=== PATIENT | female | born 1940 | race American Indian/Alaskan Native ===

== ENCOUNTER → 2017-11-12 08:30 | Outpatient (CLI) | payer MEDICARE, OTHER, SELFPAY ==
--- NOTE | 2017-11-12 | DI.MRI.S_ITS ---
PROCEDURE: MR LUMBAR SPINE WO CON INDICATIONS: Low back pain TECHNIQUE: Noncontrast sagittal T1 spin echo and T2 fast echo, sagittal STIR, axial T1 and T2 fast spin echo through the lumbar spine. In cases with scoliosis, additional coronal T2 fast spin echo may be performed. COMPARISON: None. FINDINGS: Image quality: Diagnostic, with note made of motion artifact. Alignment and Curvature: Minimal anterolisthesis is seen at L3-L4. There is grade 1 anterolisthesis at L4-L5. No pars defects are seen to the limits of MRI. Bone Marrow: Marrow is of normal overall signal. No acute vertebral body compression fractures. Spinal Cord: Conus medullaris terminates at the L1-L2 level. Visualized cord demonstrates normal signal and size. Paraspinous Soft Tissues: No paravertebral masses. T12-L1: Normal appearance. L1-L2: Normal appearance. L2-L3: The disc height is well-preserved. Loss of disc signal is seen at this level. Mild disc bulge is seen, which is eccentric to the right side. Mild facet joint hypertrophy is seen. There is mild to moderate right-sided neural foraminal narrowing. No significant left-sided neural foraminal narrowing is seen. Mild central canal narrowing is seen. L3-L4: The disc height is well-preserved. Loss of disc signal is seen at this level. Moderate to prominent disc bulge is seen, which is eccentric to the right. Moderate facet hypertrophy is seen, with associated moderate hypertrophy of the ligamentum flavum. There is moderate right-sided neural foraminal narrowing and moderate to severe left-sided neural foraminal narrowing, with associated impingement upon the exiting left L3 nerve root. Moderate to severe central canal narrowing is seen, as on series 6 image 20 and L4-L5: Mild loss of disc height is seen. Loss of disc signal is seen. Prominent disc bulge is seen at this level, with a central disc protrusion. Moderate facet hypertrophy is seen, associated moderate hypertrophy of the ligament flavum. There is moderate left-sided and moderate to severe right-sided neural foraminal narrowing seen, with associated impingement upon the exiting right L4 nerve root. Moderate to severe central canal narrowing is seen at this level, as on series 6 image 14. L5-S1: Moderate loss of disc height is seen. Loss of disc signal is seen. Moderate disc bulge is seen at this level, with a central disc protrusion, as on series 2 image 13. There is an associated annular fissure, as on series 2 images 12 through 14.. Mild to moderate facet hypertrophy is seen. Moderate to severe bilateral neural foraminal narrowing is seen, left worse than right. There is a degree of impingement seen upon the exiting nerve roots. Moderate central canal narrowing is seen. IMPRESSION: Prominent lower lumbar spine degenerative changes are seen. Dictated by: Manuelito Hooper M.D. on 11/12/2017 at 10:02 Approved by: Manuelito Hooper M.D. on 11/12/2017 at 10:14
== END ==
PROVIDERS: Visit Provider Orthopaedic Surgery Orthopaedic Surgery of the Spine
DX: M54.5 Low back pain (principal); M51.36 Other intervertebral disc degeneration, lumbar region; M51.37 Other intervertebral disc degeneration, lumbosacral region
CPT/HCPCS: 72148

== ENCOUNTER 2017-12-01 10:23 | Day surgery (SDC) | payer MEDICARE, OTHER, SELFPAY ==
[2017-11-13 11:47] VITALS: BMI 26.5
[2017-12-01] VITALS (16 sets, daily range): BP systolic 107–149; BP diastolic 37–70; PULSE 53–71; RESP 15–17; TEMP 35.8–36.8; O2SAT 94–98; BMI 23.9
[2017-12-01] MEDS: ACETAMINOPHEN 325 MG TABLET 975 MG PO (10:55)
[2017-12-01] MEDS: LACTATED RINGERS 1,000 ML 42 ML IV (10:56)
[2017-12-01] MEDS: CELECOXIB 200 MG CAPSULE PO (10:56)
--- NOTE | 2017-12-01 12:20 | PM.PREOP ---
Pre-operative Note Interval Note Pre-op Check: History & Physical Reviewed by Physician and Changes
[2017-12-01] MEDS: CEFAZOLIN 2 GM/100 ML FROZ.PIGGY IV ×2 (12:50→21:23)
--- NOTE | 2017-12-01 13:26 | SUR.OPER ---
Supine on padded OR bed. Pillow under head, arms secured on padded armboards <90 degree abduction. Safety belt across torso. Non-operative leg secured with tape over blanket over lower leg. Operative leg secured in DeMayo/Aquiles positioner.
[2017-12-01] MEDS: BUPIVACAINE 0.25% W/ EPI 50 ML VIAL INJ (13:33)
[2017-12-01] MEDS: BUPIVACAINE LIPOSOME 266 MG/20 ML VIAL INJ (13:33)
[2017-12-01] MEDS: MORPHINE 4 MG/ML INJ INJ (13:34)
--- NOTE | 2017-12-01 14:24 | DI.RAD.S_ITS ---
PROCEDURE: XR KNEE RT 1TO2V INDICATIONS: post operative total knee TECHNIQUE: 2 view(s) of the knee acquired. COMPARISON: [facility] PAUL Koroma, XR KNEE ARTHRITIC SERIES RT, 11/19/2017, 9:32. FINDINGS: Bones: Patient is status post knee joint arthroplasty. Hardware components are in expected positions. Visualized bony structures are intact. Soft tissues: Overlying postoperative changes are noted. There is a soft tissue air and edema are present. No radiopaque foreign bodies. IMPRESSION: Expected post surgical changes related to right knee arthroplasty. Dictated by: Cecil Plunkett M.D. on 12/01/2017 at 14:13 Approved by: Cecil Plunkett M.D. on 12/01/2017 at 14:14
--- NOTE | 2017-12-01 14:24 | PM.OP.1 ---
Operative Date/Time/Diagnoses - Date of procedure: 12/01/17 Time of procedure: 14:25 Pre-op diagnosis: Right knee osteoarthritis Post-op diagnosis: same Procedure & Clinicians Procedure: Right total knee replacement Same procedure as scheduled: Yes Indications: The patient has had progressively worsening right knee pain with radiographic changes consistent with arthritis. Non-operative management has failed and the patient has requested total knee replacement. The risks, benefits and alternatives to surgery were discussed with the patient prior to proceeding. Risks discussed included, but were not limited to, failure to relieve pain, stiffness, infection, nerve damage, deep venous thrombosis, pulmonary embolism, stroke, coma, heart attack, permanent paralysis and , as well as the potential need for eventual revision of the prosthetic. Surgeon: Murphy Meier Technical Designer: John Eagle Click Yes if Unassisted: No Anesthesia Type: General, Spinal and Local Operative Notes Findings: Severe medial and moderate patellofemoral and lateral osteoarthritis Closure Type: primary Specimen(s): none sent Implants & Drains: Implants used in this procedure were manufactured by the [employer] and [employer] and included the BCS II Journey total knee replacement with a size 5 right cobalt chromium femur, size 4 right non porous tibial base plate, a 10 mm cross-linked polyethylene BCS II tibial insert and a 29 mm oval Cynthia II patella. Applied: implant(s) Estimated Blood Loss (mL): 25 Blood products transfused: none Tourniquet time (min): 51 Procedure in detail: The patient was seen in the pre-operative area, where the patient identified the right knee as the operative site and this was marked with my initials. The patient received pre-operative antibiotics, and was taken to the operating room and placed on the operative table in the supine position. After satisfactory anesthesia, a mattress renovator out was performed. The right leg was encircled with a tourniquet about the proximal thigh, and the leg was prepared from the toes to the tourniquet with ChloroPrep in the usual fashion and draped through sterile drapes. The leg was elevated and exsanguinated with Eschmark bandage and the tourniquet inflated to 250 mmHg pressure. The knee was approached through an approximately 18 cm incision centered over the patella and carried into the knee through a medial parapatellar arthrotomy. The anterior osteophytes and soft tissues were removed. The rotational landmarks of Wagner's line and the transepicondylar axis were marked on the femur with electrocautery, and intramedullary guide holes for the femur and tibia were created. The distal femoral cut was made in 6 degrees of valgus using the intramedullary guide at the primary cut setting. The proximal tibial cut was then made using the intramedullary guide, taking 9 mm of bone off the less involved side. The extension gap was checked and the rotation of the femoral component confirmed with the gap balancing system. The anterior, posterior and chamfer cuts were then made. The posterior osteophytes and soft tissues were then removed. The posterior capsule was injected with part of a mixture of 50 ml 0.25% Marcaine mixed with 20 ml Exparel and 4 mg of morphine for post-operative pain control. The remainder of this mixture was injected into the capsule and subcutaneous tissues during cement curing. The tibia was prepared with the rotation set by an extra medullary guide. Trial tibial and femoral components were then placed and the intercondylar notch cut through the femoral trial. Range of motion was 0-135 degrees, with good stability throughout the range. The patella was then cut to accommodate the patellar prosthetic. There was no need for a lateral release. The trials were then removed, and the femoral hole plugged with a bone plug. The bone was prepared with pulsatile lavage, and dried with a sponge. Cement was applied and the final prosthetics placed. Excess cement was removed during and after cement curing. After confirming there was no extruded cement posteriorly, the final tibial insert was placed. The knee was copiously irrigated and the tourniquet deflated. Hemostasis was obtained. The capsule was closed with interrupted # 2 polyester suture. The subcutaneous layer was closed with 3-0 Vicryl, and the skin with a running 3-0 V-Lock suture and SteriStrips. An Aquacel Ag dressing was applied and the patient was taken to recovery having tolerated the procedure well. Complications: none Condition: stable Disposition: PACU Plan for aftercare: The patient will be maintained on a standard total knee replacement protocol with weight bearing as tolerated. The patient will receive aspirin and sequential compression devices for DVT prophylaxis. The patient will be discharged home when safe for the home environment.
--- NOTE | 2017-12-01 16:09 | PC.NURSE ---
patient up to floor at 1545, iv catheter intact and patent, patient denies nausea, sob, and dizziness. patient states her ble feel slightly numb but she can feel when I touch her toes, demonstrates ability to wiggle toes. scd's are on and active. patient denies pain. 98% on ra at this time. dressing and juan wrap and c/d/i. patient oriented to room and call light, call light in reach, ba on. heart, lung, and bowel tones are wnl. patient is a&ox4. daughters are at bedside. patient tolerating ice chips, diet is regular. will provide water. will continue to monitor.
[2017-12-01] MEDS: ACETAMINOPHEN 325 MG TABLET 650 MG PO ×2 (16:50→23:39)
[2017-12-01] MEDS: LACTATED RINGERS 1,000 ML 100 ML IV (16:50)
[2017-12-01] MEDS: IBUPROFEN 200 MG TABLET PO (16:52)
[2017-12-01] MEDS: OXYCODONE IR 5 MG TABLET PO ×2 (18:21→21:23)
[2017-12-01] MEDS: DOCUSATE 100 MG CAPSULE PO (21:23)
[2017-12-01] MEDS: ASPIRIN EC 81 MG TABLET PO (21:23)
[2017-12-01] MEDS: sulfaSALAzine 500 MG TABLET 1000 MG PO (21:24)
[2017-12-02] MEDS: OXYCODONE IR 5 MG TABLET PO ×2 (02:11→09:14)
[2017-12-02 03:29] VITALS: BP 127/60; PULSE 53; RESP 16; TEMP 35.6; O2SAT 96
[2017-12-02] MEDS: CEFAZOLIN 2 GM/100 ML FROZ.PIGGY IV (04:48)
[2017-12-02] MEDS: ACETAMINOPHEN 325 MG TABLET 650 MG PO ×2 (04:54→12:39)
[2017-12-02] MEDS: ONDANSETRON 4 MG/2 ML INJ IV (05:44)
[2017-12-02 05:56] LABS: Hematocrit 33.1 % (36-46)
--- NOTE | 2017-12-02 07:37 | PM.PNPO.1 ---
Subjective Date Patient Seen: 12/02/17 Time Patient Seen: 07:38 Interval history: The patient reports that she is having some pain at the operative site but that generally her pain has been well controlled. Exam Vital Signs (past 8 hours): - 12/02/17 03:29 Temperature 96.1 F L Pulse Rate 53 L Respiratory Rate 16 Blood Pressure 127/60 H Pulse Oximetry 96 Oxygen Delivery Method Room Air Narrative Exam Narrative: Right lower extremity wound dressing is intact with no drainage on the bandage. Calf is soft. Light touch and motion are intact in the right lower extremity. Objective Labs Result Diagrams: 12/02/17 05:30 Labs: Laboratory Results - last 24 hr 12/02/17 05:30 Hgb 11.0 L Hct 33.1 L Assessment & Plan Post-op Postoperative Procedures Operation Date: 12/01/17 12:15 Actual Procedures Side Surgeon p Total Knee Arthroplasty Right Murphy Meier MD Postoperative day: 1 Postoperative status: doing well (The patient is doing well postop day 1 after right total knee replacement. She did not receive physical therapy yesterday although it was ordered. We will initiate physical therapy today and if she manages to do a short flight of stairs she may go home.) and anemia (The patient has a mild post hemorrhagic anemia which is anticipated. No further labs are necessary.) Postoperative plan: routine post-op care, ambulate and discharge (Discharge if meets criteria to be safe at home.) Time Spent With Patient less than 15 minutes
[2017-12-02 08:15] VITALS: BP 112/65; PULSE 48; RESP 12; TEMP 36.4; O2SAT 94
--- NOTE | 2017-12-02 09:09 | CM.DANOTE ---
DCP/Assessment: Reviewed chart. Patient is a 77yr old female admitted under SDC status for right TKA performed on 12-01-17. Primary payor is 1)[employer] 2)[employer]. PCP is Dr. Reid in [place] Met with patient explained CM/SW role. Patient alert and oriented, resting in bed at time of visit. Patient reports that she plans to go home when medically stable. Patient resides with daughter/Natalie. Patient does not anticipate any d/c planning needs. Patient has cane/walker for home use. Patient expected to see therapy this AM. Patient does report that she has 3-4 stairs to enter residence and once in residence. Patient reports that pending on how she does will therapy will determine on whether or not she will discharge today. Patient has outpatient therapy arranged in [place] Patient reports that her family will be providing her with transport to/from outpatient appointments. P: Anticipate home when medically stable. CM team name/number left on white board if patient/family have any questions. CM team to continue to follow. SONIA Nam Discharge Planning/Care Management CM Discharge Assessment Start: 12/02/17 09:07 Freq: Status: Active Protocol: Document 12/02/17 09:07 KJS (Rec: 12/02/17 09:09 Katelin [id number]) Discharge Planning Assessment Assigned Groutman SONIA/Sujey History Provided By Patient Has Patient been admitted in last 30 No days? Prior Living Arrangements House Household Members children Type of transporation used prior to Relies on Others admit Independent with ADL's Yes Is patient alert and oriented? Yes Caregiver for Another No Physical Barriers in Home Environment Stairs Discharge Plan Home Review Status In Process Next Review Type Discharge Review
[2017-12-02] MEDS: LISINOPRIL 20 MG TABLET PO (09:12)
[2017-12-02] MEDS: ASPIRIN EC 81 MG TABLET PO (09:12)
[2017-12-02] MEDS: DOCUSATE 100 MG CAPSULE PO (09:12)
[2017-12-02] MEDS: LEFLUNOMIDE 20 MG TABLET PO (09:14)
[2017-12-02] MEDS: sulfaSALAzine 500 MG TABLET 1000 MG PO (09:14)
--- NOTE | 2017-12-02 11:25 | PC.NURSE ---
Addendum entered by Emily Eugene R.N. 12/02/17 14:19: Zhen Eagle into see patient and check on r.knee bleeding. He assessed area and put some albert in with steri strips. pt up to bathroom and voided x1. She is back in chair and comfortable. Original Note: Assess- Pt up with P.T. and r.leg incision with some bleeding through aquacel dressing and juan wrap after pt up ambulating. Aquacel dressing changed and abd pad applied to area to help with extra absorbtion if area bleeds again. Pt tolerating ambulating in room and is now sitting up in chair. CMS wnl and ppx2.
--- NOTE | 2017-12-02 12:44 | PT.IIE ---
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 stated that she has been using a quad cane or SPC a few weeks prior to surgery but no AD before that. Social History Household Members children Living Arrangements House Number of Floors (Floors) Two Floors Number of Stairs To Enter/Railing? has 4 steps with L rail and R side wall. pt stays on main level of the house Home Environment Standard Height Toilet Tub/Shower Home Equipment Front Wheel Walker Quad Cane Straight Cane Grab Bars In Shower Additional Social History Comment stated that daughter works but took 1 week off to assist her and after that , her grand daughter can assist her. pt works as a title i director. M2 PT-IP Current Condition Start: 12/02/17 12:08 Freq: NEEDED Status: Active Protocol: Document 12/02/17 12:08 AB (Rec: 12/02/17 12:44 AB [id number]) Physical Therapy Current Condition Current Condition Evaluation Date 12/02/17 Treatment Diagnosis s/p R TKA Onset Date 12/01/17 Weight Bearing Status Weight Bearing Status Weight Bear as Tolerated M3 PT-IP Subjective Start: 12/02/17 12:08 Freq: NEEDED Status: Active Protocol: Document 12/02/17 12:08 AB (Rec: 12/02/17 12:44 AB [id number]) Subjective Physical Therapy Visit Type Type Initial Evaluation Visit Start Time 09:10 Visit Stop Time 10:10 Total Visit Minutes 60 Number of CUSTOMER CARE MANAGER Visits 0 Physical Therapy Visit Comments Patient Comments pt agreealbe to do therapy Therapy Pain Assessment Pain When Pain Assessed At Rest Pain Present Pain Present Pain Reported Location Right Knee Intensity 2 Scale Used Numeric (1 - 10) M4 PT-IP Mobility and Gait Start: 12/02/17 12:08 Freq: NEEDED Status: Active Protocol: Document 12/02/17 12:08 AB (Rec: 12/02/17 12:44 AB [id number]) PT-Bed Mobility Assessment Rolling Level of Assist Standby Assistance Supine to Sit Supine to Sit Standby Assistance PT-Transfer Assessment Sit to and From Stand Sit to and from Stand Minimal Assistance 1 Person Assistance Equipment Transfer Assistive Device Gait Belt Front Wheeled Walker Transfers Transfer Destination Chair Transfer Technique Stand Step Pivot Transfer Ability Level of Assist Minimal Assistance 1 Person Assistance Gait Assessment Gait Gait Assistance Required: Minimum Assistance Distance (Feet) (feet) 50 Able to Maintain Weight Bearing Status Yes During Gait Assistive Devices Assistive Device Gait Belt Front Wheeled Walker Orthotic/Prosthetic Devices or Brace: No Gait Deviations General Gait Pattern Antalgic Decreased Stride Length Decreased Feet Clearance Factors Limiting Gait Function Factors Limiting Gait Function Decreased Activity Tolerance Decreased Strength Limited Range of Motion Pain Poor Balance Poor Safety Awareness Comments Gait Comments pt ambulated to the toilet using FWW min A and cues for R quad activation. pt was able to maintain standing using FWW for support CGA while assisted with brief management . pt ambulated to the sink min A using FWW and was able to maintain standing by the sink CGA while completing handwashing. Pt ambulated in hallway towards stairs but has increase incision site bleeding and nurse informed. pt assisted back to room. completed transfer to chair min A using FWW. Nurse changed dressing. positioned pt on chair. call light and table set up. PT-Balance Assessment Sitting Balance and Reactions Static Sitting Balance Ability Good Dynamic Sitting Balance Ability Good Standing Balance and Reactions Static Standing Balance Ability Fair Dynamic Standing Balance Ability Fair M5 PT-IP Objective Assessments Start: 12/02/17 12:08 Freq: NEEDED Status: Active Protocol: Document 12/02/17 12:08 AB (Rec: 12/02/17 12:44 AB [id number]) Orientation Orientation/Cognition Level of Alertness Alert Orientation Name Age Year Place Situation Safety Awareness Decreased Safety Awareness Gross Range of Motion Lower Extremity ROM Assessment Right Impaired Strength Lower Extremity Strength Assessment Right Impaired M6 PT-IP Treatment Start: 12/02/17 12:08 Freq: NEEDED Status: Active Protocol: Document 12/02/17 12:08 AB (Rec: 12/02/17 12:44 AB [id number]) Physical Therapy Treatment Education Education Provided Precautions Weight Bearing Status Post-Op Packet Safety M7 PT-IP Assessment and Plan Start: 12/02/17 12:08 Freq: NEEDED Status: Active Protocol: Document 12/02/17 12:08 AB (Rec: 12/02/17 12:44 AB [id number]) PT Summary Assessment and Plan Potential Rehabilitation Potential Good Status of Condition at Evaluation Evolving Summary Impairments Pain ROM Strength Balance Bed Mobility Transfers Gait Activity Tolerance Assessment Summary pt requiring one person assist with mobility and will likely improve during hospital stay. stair climbing needs to be completed prior to d/c and caregiver training if appropriate. Goals Bed Mobility Goal Standby Assistance Transfer Goal Standby Assistance Gait Goal Standby Assistance Front Wheel Walker Gait Distance 150 Other Goals up/down 4 steps with L rail ascending. Days to Meet Goals 3 Treatment Plan Physical Therapy Treatment Plan Bed Mobility Training Transfer Training Gait Training Therapeutic Exercise Balance Retraining Post Op Education Discharge Planning Hot or Cold Pack Neuromuscular Re-ed Other Recommendations and Next Treatment stair climbing, ambulation Focus Recommendations To Nursing Amount of Assist Needed 1 Person Assist Discharge Recommendations PT Discharge Recommendations Home with Assistance Outpatient PT
--- NOTE | 2017-12-02 15:24 | PM.DS.1 ---
History of Present Illness Date Patient Seen: 12/02/17 Time Patient Seen: 15:24 Chief complaint: *[place]B* [place] [id number] Narrative: Patient states her pain is mild. No fever chills. No nausea vomiting. She was able to walk steps with physical therapy. Her daughters could be home to assist her. Patient does feel ready to be discharged home today. Discharge Providers Consults: 12/01/17 15:57 Consult to Discharge Planning Routine Comment: Consult to Physical Therapy Evaluate & Treat Comment: Physician Instructions: postop TKA protocol Discharge provider: John Ealge PA-C Summary Discharge Diagnosis: Status post right total knee arthroplasty Hospital Course: patient has had progressively worsening right knee pain with radiographic changes consistent with arthritis. Non-operative management has failed and the patient has requested total knee replacement. The risks, benefits and alternatives to surgery were discussed with the patient prior to proceeding. Risks discussed included, but were not limited to, failure to relieve pain, stiffness, infection, nerve damage, deep venous thrombosis, pulmonary embolism, stroke, coma, heart attack, permanent paralysis and , as well as the potential need for eventual revision of the prosthetic. Surgeon: Murphy Meier Bench Worker Hollow Handle: John Eagle Click Yes if Unassisted: No Anesthesia Type: General, Spinal and Local Patient underwent right total knee arthroplasty. Patient progressing as expected. She did have more than expected drainage in the dressing. I did remove the dressing and found 2 areas 1 proximal and 1 more distal along the incision draining minimal amount of dark blood. I inspected the wound and removed the Steri-Strips patient had no complaints of pain. I talked with Dr. Still about applying some albert along the areas that are draining. Patient consented to the same. I placed 9 albert along the proximal and inferior wound and drainage stopped. New Aquacel dressing applied. Dressing and albert applied in sterile fashion. [place] wrap was applied. Patient was able to work with physical therapy without any further problems or drainage. Status at Discharge Functional status at discharge: uses cane/walker Overall status at discharge: patient is progressing back to baseline Time Spent with Patient Less than 30 minutes Exam Vital Signs (past 8 hours): - 12/02/17 08:15 Temperature 97.6 F Pulse Rate 48 L Respiratory Rate 12 Blood Pressure 112/65 Pulse Oximetry 94 Oxygen Delivery Method Room Air Narrative Exam Narrative: Pleasant 77-year-old female resting comfortably in bed in no apparent distress. The dressing is now clean, dry and intact. No further drainage noted. Motor function is intact distal right lower extremity. Sensation is grossly intact to light touch. Good capillary refill distally. Objective Labs Result Diagrams: 12/02/17 05:30 Labs: Laboratory Results - last 24 hr 12/02/17 05:30 Hgb 11.0 L Hct 33.1 L Discharge Plan Discharge Plan Patient Disposition: Home, Self-Care Discharge comment: DC home today Discharge Med Rec/Prescriptions Prescriptions: Continue sulfasalazine 500 mg Tablet 1,000 mg PO BID RF: 0 lisinopril 20 mg Tablet 20 mg PO QAM RF: 0 leflunomide 20 mg Tablet 20 mg PO QAM RF: 0 Discontinued ibuprofen 200 mg Tablet 200 mg PO DAILY PRN (Reason: pain) RF: 0 Follow up/Referrals: Murphy Meier MD [Physician] - (Follow up 5-7 days) Discharge Orders: Discharge (Order); Ordered 12/02/17 Ordered By: John Eagle Provider Discharge Instructions Diet: Diet as Tolerated Cold/Heat Therapy: Apply ice to the knee as needed. Other treatments: Keep dressing in place until follow-up appointment. If any further drainage she needs to be seen for recheck. Patient has prescription of oxycodone home to use as directed. She also has Tylenol and Mobic to use as directed. She will be on aspirin 81 mg b.i.d.. Wound Care Report to your healthcare provider any signs of infection, such as:: chills, fever, increased pain and unusual drainage Dressing: May shower with dressing in place. No soaking dressing for any length of time Other wound treatment: If continued drainage noted she is to return for follow up for recheck. Visit Report/Discharge Packet Stand Alone Forms: Surgery Discharge Discharge Data Attending Provider: Murphy Meier
[2017-12-02 16:01] VITALS: BP 120/62; PULSE 60; RESP 16; TEMP 36.7; O2SAT 96
[2017-12-02] MEDS: IBUPROFEN 200 MG TABLET PO (16:15)
--- NOTE | 2017-12-02 16:47 | PC.NURSE ---
1640: Discharge note Patient awake and alert, VSS and afebrile. CMS to LLE intact. Dressed self at bedside. Discharge instructions given to patient, including F/U appointment with Dr. Meier, wound/dressing care, s/sx of infection. Verbalized understanding of discharge instructions, answered questions. Daughters at bedside providing supportive care. PT will demonstrate stair mobility while daughters are present and available prior to discharge home.
--- NOTE | 2017-12-02 17:36 | PT.IPTN ---
Current Diagnoses Bilateral primary osteoarthritis of knee (12/01/17) Surgery Performed Operation Date: 12/01/17 12:15 Actual Procedures p Total Knee Arthroplasty(Right) - Murphy Meier MD Physical Therapy Treatment Note M2 PT-IP Current Condition Start: 12/02/17 12:08 Freq: NEEDED Status: Discharge Protocol: Document 12/02/17 12:08 AB (Rec: 12/02/17 12:44 AB [id number]) Physical Therapy Current Condition Current Condition Evaluation Date 12/02/17 Treatment Diagnosis s/p R TKA Onset Date 12/01/17 Weight Bearing Status Weight Bearing Status Weight Bear as Tolerated M3 PT-IP Subjective Start: 12/02/17 12:08 Freq: NEEDED Status: Discharge Protocol: Document 12/02/17 17:32 AB (Rec: 12/02/17 17:36 AB [id number]) Subjective Physical Therapy Visit Type Type Treatment Note Visit Start Time 14:50 Visit Stop Time 16:40 Total Visit Minutes 33 Number of SASH REPAIRER Visits 0 Physical Therapy Visit Comments Patient Comments pt agreeable to do therapy Therapy Pain Assessment Pain When Pain Assessed At Rest Pain Present Pain Present Pain Reported Location Right Knee Intensity 2 Scale Used Numeric (1 - 10) Pain Management Techniques Timing of Activity with Medications M4 PT-IP Mobility and Gait Start: 12/02/17 12:08 Freq: NEEDED Status: Discharge Protocol: Document 12/02/17 17:32 AB (Rec: 12/02/17 17:36 AB [id number]) PT-Bed Mobility Assessment Supine to Sit Supine to Sit Standby Assistance Sit to Supine Sit to Supine Standby Assistance PT-Transfer Assessment Sit to and From Stand Sit to and from Stand Contact Guard Assistance Equipment Transfer Assistive Device Gait Belt Front Wheeled Walker Gait Assessment Gait Gait Assistance Required: Contact Guard Assist Distance (Feet) (feet) 50 Able to Maintain Weight Bearing Status Yes During Gait Assistive Devices Assistive Device Gait Belt Front Wheeled Walker Gait Deviations General Gait Pattern Antalgic Factors Limiting Gait Function Factors Limiting Gait Function Decreased Activity Tolerance Decreased Strength Difficulty Following Directions Limited Range of Motion Pain Poor Balance Poor Safety Awareness Stair Climbing Assessment Evaluation Level of Assist On Stairs Minimal Assistance Devices Stair Climbing Assistive Devices Front Wheel Walker Technique/Endurance Stair Climbing Direction Ascend and Descend Stair Climbing Technique Step to Step Number of Steps Climbed 3 Query Text: Stair Climbing Set # Repetitions (reps) 4 Comments Stair Climbing Comments caregiver training conducted for stair climbing and daughter was able to assist pt safely M5 PT-IP Objective Assessments Start: 12/02/17 12:08 Freq: NEEDED Status: Discharge Protocol: Document 12/02/17 12:08 AB (Rec: 12/02/17 12:44 AB [id number]) Orientation Orientation/Cognition Level of Alertness Alert Orientation Name Age Year Place Situation Safety Awareness Decreased Safety Awareness Gross Range of Motion Lower Extremity ROM Assessment Right Impaired Strength Lower Extremity Strength Assessment Right Impaired M6 PT-IP Treatment Start: 12/02/17 12:08 Freq: NEEDED Status: Discharge Protocol: Document 12/02/17 17:32 AB (Rec: 12/02/17 17:36 AB [id number]) Physical Therapy Treatment Education Education Provided Precautions Weight Bearing Status Post-Op Packet Safety M7 PT-IP Assessment and Plan Start: 12/02/17 12:08 Freq: NEEDED Status: Discharge Protocol: Document 12/02/17 17:32 AB (Rec: 12/02/17 17:36 AB [id number]) PT Summary Assessment and Plan Potential Rehabilitation Potential Good Summary Impairments Pain ROM Strength Balance Cognition Bed Mobility Transfers Gait Activity Tolerance Progress Towards Goals Progressing Toward Goals Assessment Summary pt plans to go home today. caregiver training conducted with daughter for stair training and was able to assist pt. Goals Bed Mobility Goal Standby Assistance Transfer Goal Standby Assistance Gait Goal Standby Assistance Front Wheel Walker Gait Distance 150 Other Goals up/down 4 steps with L rail ascending. Treatment Plan Physical Therapy Treatment Plan Bed Mobility Training Transfer Training Gait Training Therapeutic Exercise Balance Retraining Post Op Education Discharge Planning Hot or Cold Pack Neuromuscular Re-ed Other Recommendations and Next Treatment stair climbing, ambulation Focus Recommendations To Nursing Amount of Assist Needed 1 Person Assist Discharge Recommendations PT Discharge Recommendations Home with Assistance Outpatient PT
== END 2017-12-02 16:43 | disposition home or self-care (01) ==
LOC: OR 10:25 → AC 15:54
PROVIDERS: Visit Provider Orthopaedic Surgery
PROC: 0SRC0JZ Replacement of Right Knee Joint with Synthetic Substitute, Open Approach (ICD-10-PCS; CPT 27447; principal; 2017-12-01 12:15)
DX: I10 Essential (primary) hypertension (principal); M06.9 Rheumatoid arthritis, unspecified
CPT/HCPCS: 27447; 36415; 73560; 85014; 85018; 97116; 97162; 97530; C1776; C9290; J0690; J1100; J2250; J2270; J2405; J2704; J3010

== ENCOUNTER 2018-02-18 05:39 | Inpatient (IN) | payer MEDICARE, OTHER, SELFPAY ==
[2017-12-01 15:57] VITALS: BMI 23.9
[2018-02-02 11:58] VITALS: BMI 24.4
[2018-02-18] VITALS (17 sets, daily range): BP systolic 90–163; BP diastolic 43–72; PULSE 72–84; RESP 10–20; TEMP 35.3–37.1; O2SAT 93–98; BMI 23.8
--- NOTE | 2018-02-18 | DI.RAD.S_ITS ---
PROCEDURE: XR LUMBAR SPINE 2-3V INDICATIONS: L3-4, L4-5 L5-S1 TLIF TECHNIQUE: 2 intraoperative fluoroscopic views of the lumbar spine were acquired. COMPARISON: None. FINDINGS: Bones: Intraoperative fluoroscopic images of lumbar spine shows transpedicular fusion from L3-S1 levels with intervertebral spacer placement at L3-4 through L5-S1 levels. Minimal anterolisthesis of L4 on L5 and L5 on S1 is seen. Soft tissues: Overlying bowel gas pattern is normal. No suspicious soft tissue calcifications. IMPRESSION: Fluoroscopy guidance was provided intraoperatively for posterior fusion of L3-S1 levels. Dictated by: Nikolai Melendez M.D. on 02/18/2018 at 13:10 Approved by: Nikolai Melendez M.D. on 02/18/2018 at 13:14
[2018-02-18] MEDS: LACTATED RINGERS 1,000 ML 42 ML IV ×2 (06:56→09:07)
--- NOTE | 2018-02-18 08:00 | PM.PREOP ---
Pre-operative Note Interval Note Pre-op Check: Yes History & Physical Reviewed by Physician, Yes Exam Performed and Yes History & Physical exam performed today by Physician Changes: No
[2018-02-18] MEDS: CEFAZOLIN 2 GM/100 ML FROZ.PIGGY IV ×2 (08:02→17:44)
--- NOTE | 2018-02-18 08:50 | SUR.OPER ---
Prone on spine table, head in foam head support, padded chest and pelvic supports, gel pad at knees, lower legs supported by pillows; nipples, genitalia and toes free of pressure, arms secured on foam padded arm boards at <90 degrees abduction. Tape over blanket at thigh secured to table.
[2018-02-18] MEDS: BUPIVACAINE 0.25% W/ EPI VIAL 30 ML INJ (08:56)
[2018-02-18] MEDS: BUPIVACAINE LIPOSOME 266 MG/20 ML VIAL INJ (08:57)
--- NOTE | 2018-02-18 12:31 | PM.OP.1 ---
Operative Date/Time/Diagnoses Date of procedure: 02/18/18 Time of procedure: 12:32 Pre-op diagnosis: 1. L3-4, L4-5, L5-S1 spondylolisthesis 2. L3-4, L4-5, L5-S1 spinal stenosis 3. L3-4, L4-5, L5-S1 spondylosis with radiculopathy Post-op diagnosis: same Procedure & Clinicians Procedure: 1. L3-4, L4-5, L5-S1 Postero-lateral and posterior interbody fusion 2. L3-4, L4-5, L5-S1 interbody cage placement. 3. L3-4, L4-5, L5-S1 decompressive laminectomy with bilateral facetecomies 4. L3-4, L4-5, L5-S1 Posterior segmental instrumentation 5. [place] of bone marrow from iliac crest 6. Utilization of microsurgical technique and operating microscope Same procedure as scheduled: Yes Indications: Patient has been having chronic back pain and worsening lumbar radiculopathy. Patient failed multiple conservative management with worsening pain weakness and numbness in her lower extremity. Patient has been having difficulty performing activity of daily living. After discussing risks benefits of treatment options, patient elected proceed with surgery. Surgeon: Sara Carreon Stick Feeder: Khushbu Rey Click Yes if Unassisted: No Anesthesia Type: General Operative Notes Closure Type: primary Specimen(s): none sent Implants & Drains: Globus revolve screws and Rise cages Applied: catheter Estimated Blood Loss (mL): 100 Blood products transfused: none Procedure in detail: Patient was seen in the preoperative area. Risks and benefits of the surgery was discussed with the patient. Informed consent was obtained from the patient and placed in the chart. Surgical site was marked. Patient was taken to the operative room. General anesthesia was administered. Prophylactic antibiotic was given to the patient less than 30 min before the incision was made. Patient was placed into a prone position on the Sahil table. Patient's back was then prepped and draped in the sterile fashion. Time-out was performed at this time. Using AP and lateral C-arm imaging the interval between L3-S1 was identified and marked on patient's back. A 3 inch incision 2 in from midline was made on the left side first. The fascia was incised in line with skin incision. Globus MARS retractors was placed inside the incision and docked onto the L3, L4 and L5 lamina. Using microsurgical technique and operating microscope, a L3, L4 and L5 laminectomy and L3-4, L4-5 L5-S1 facetectomy was performed using a Kerrison rongeur. The disc space at L3-4, L4-5, L5-S1 was identified. And a total diskectomy was performed at L3-4, L4-5, L5-S1 level. The endplates were decorticated using a rasp and shaver. The total diskectomy and decortication was performed at L3-4, L4-5, L5-S1 level in order to to accomplish a L3-4, L4-5, L5-S1 fusion. The local bone from the laminectomy and facetectomy was saved for local bone grafting. After the total diskectomy and decortication was completed, Globus viacell bone graft material was combined with local bone that was harvested earlier. At this time, a separate skin is incision was made over the iliac crest. A Jamshidi needle was inserted into the iliac crest through a separate skin incision. 5 cc of bone marrow aspiration was obtained through the separate skin incision using a Jamshidi needle from the iliac crest. The bone marrow aspiration was combined with local bone and the via cell bone grafting material. The bone grafting material was placed into the L3-4, L4-5, L5-S1 interbody space along with three cages, one expandable cage at each level. The cages were expanded to their maximum height using the torque limiting screwdriver. At this time a mirror image incision was made on the right side. The fascia was incised in line with the skin incision. Globus MARS retractor was inserted and docked onto the L3-4, L4-5, L5-S1 posterolateral gutter. Using the power drill, posterior-lateral decortication was performed at L3-4, L4-5, L5-S1 level until bleeding cortical bone was identified. The remaining bone grafting material was placed into the L3-4, L4-5 L5-S1 posterior lateral gutter he order to accomplish posterolateral fusion at the L3-4, L4-5 L5-S1 levels. Using the double C-arm technique, pedicle screws were placed into the L3, L4, L5, S1 pedicles bilaterally. This was done by placing the Jamshidi needle into the pedicles, then placing the guidewires over the Jamshidi needle, and finally placing the cannulated screws over the guidewires bilaterally. After the pedicle screws were placed, 2 titanium rods was locked into the heads of the pedicle screws using locking caps and torque limiting screwdriver. Total 8 pedicles screws were placed. After all the hardware was placed, and confirmed with AP and lateral C-arm imaging, the wound was then irrigated with sterile normal saline and packed with Ray-Jonathan gauze for 3 min to accomplish hemostasis. After the gauze was removed the deep fascia was closed with #1 Vicryl suture. The subcutaneous layer was closed with 2-0 Vicryl. The skin was closed with skin albert. Patient tolerated the procedure well. There were no complications. Complications: none Condition: stable Disposition: PACU Plan for aftercare: Admit to inpatient hospital
--- NOTE | 2018-02-18 12:35 | P.OP_ITS ---
Operative Date/Time/Diagnoses Date of procedure: 02/18/18 Time of procedure: 12:32 Pre-op diagnosis: 1. L3-4, L4-5, L5-S1 spondylolisthesis 2. L3-4, L4-5, L5-S1 spinal stenosis 3. L3-4, L4-5, L5-S1 spondylosis with radiculopathy Post-op diagnosis: same Procedure & Clinicians Procedure: 1. L3-4, L4-5, L5-S1 Postero-lateral and posterior interbody fusion 2. L3-4, L4-5, L5-S1 interbody cage placement. 3. L3-4, L4-5, L5-S1 decompressive laminectomy with bilateral facetecomies 4. L3-4, L4-5, L5-S1 Posterior segmental instrumentation 5. [place] of bone marrow from iliac crest 6. Utilization of microsurgical technique and operating microscope Same procedure as scheduled: Yes Indications: Patient has been having chronic back pain and worsening lumbar radiculopathy. Patient failed multiple conservative management with worsening pain weakness and numbness in her lower extremity. Patient has been having difficulty performing activity of daily living. After discussing risks benefits of treatment options, patient elected proceed with surgery. Surgeon: Sara Carreon Director Education: Khushbu Rey Click Yes if Unassisted: No Anesthesia Type: General Operative Notes Closure Type: primary Specimen(s): none sent Implants & Drains: Globus revolve screws and Rise cages Applied: catheter Estimated Blood Loss (mL): 100 Blood products transfused: none Procedure in detail: Patient was seen in the preoperative area. Risks and benefits of the surgery was discussed with the patient. Informed consent was obtained from the patient and placed in the chart. Surgical site was marked. Patient was taken to the operative room. General anesthesia was administered. Prophylactic antibiotic was given to the patient less than 30 min before the incision was made. Patient was placed into a prone position on the Sahil table. Patient's back was then prepped and draped in the sterile fashion. Time- out was performed at this time. Using AP and lateral C-arm imaging the interval between L3-S1 was identified and marked on patient's back. A 3 inch incision 2 in from midline was made on the left side first. The fascia was incised in line with skin incision. Globus MARS retractors was placed inside the incision and docked onto the L3, L4 and L5 lamina. Using microsurgical technique and operating microscope, a L3, L4 and L5 laminectomy and L3-4, L4-5 L5-S1 facetectomy was performed using a Kerrison rongeur. The disc space at L3-4, L4-5, L5-S1 was identified. And a total diskectomy was performed at L3-4, L4-5, L5-S1 level. The endplates were decorticated using a rasp and shaver. The total diskectomy and decortication was performed at L3-4, L4-5, L5-S1 level in order to to accomplish a L3-4, L4-5 , L5-S1 fusion. The local bone from the laminectomy and facetectomy was saved for local bone grafting. After the total diskectomy and decortication was completed, Globus viacell bone graft material was combined with local bone that was harvested earlier. At this time, a separate skin is incision was made over the iliac crest. A Jamshidi needle was inserted into the iliac crest through a separate skin incision. 5 cc of bone marrow aspiration was obtained through the separate skin incision using a Jamshidi needle from the iliac crest. The bone marrow aspiration was combined with local bone and the via cell bone grafting material. The bone grafting material was placed into the L3-4, L4-5, L5-S1 interbody space along with three cages, one expandable cage at each level. The cages were expanded to their maximum height using the torque limiting screwdriver. At this time a mirror image incision was made on the right side. The fascia was incised in line with the skin incision. Globus MARS retractor was inserted and docked onto the L3-4, L4-5, L5-S1 posterolateral gutter. Using the power drill , posterior-lateral decortication was performed at L3-4, L4-5, L5-S1 level until bleeding cortical bone was identified. The remaining bone grafting material was placed into the L3-4, L4-5 L5-S1 posterior lateral gutter he order to accomplish posterolateral fusion at the L3-4, L4-5 L5-S1 levels. Using the double C-arm technique, pedicle screws were placed into the L3, L4, L5 , S1 pedicles bilaterally. This was done by placing the Jamshidi needle into the pedicles, then placing the guidewires over the Jamshidi needle, and finally placing the cannulated screws over the guidewires bilaterally. After the pedicle screws were placed, 2 titanium rods was locked into the heads of the pedicle screws using locking caps and torque limiting screwdriver. Total 8 pedicles screws were placed. After all the hardware was placed, and confirmed with AP and lateral C-arm imaging, the wound was then irrigated with sterile normal saline and packed with Ray-Jonathan gauze for 3 min to accomplish hemostasis. After the gauze was removed the deep fascia was closed with #1 Vicryl suture. The subcutaneous layer was closed with 2-0 Vicryl. The skin was closed with skin albert. Patient tolerated the procedure well. There were no complications. Complications: none Condition: stable Disposition: PACU Plan for aftercare: Admit to inpatient hospital
[2018-02-18] MEDS: fentaNYL 100 MCG/2 ML INJ 50 MCG IV ×2 (13:17→13:40)
--- NOTE | 2018-02-18 13:51 | CM.DANOTE ---
Patient is a 77 year old female who was admitted on 02/18/18 for TLIF with Instrumentation. Pt has [place] and [place] for [place] and her PCP is not listed. EMR was reviewed. Per MD, pt off the floor for surgery today. Per RN, pt went down to surgery this morning around 0800 and is still off the floor as of 1400. Pt was admitted to [facility] in November 2017 for knee surgery and was Independent with ADL's at baseline and lives in [place] with her adult Dtr Natalie. Pt was able to d/c home at that time with Dtr and outpt therapy. SW attempted bedside assessment but since pt still off the floor for surgery at 1400 since 0800 this morning then bedside assessment not able to be completed at this moment. Plan: SW to follow for pt to return to floor after surgery and PT/OT eval towards determining if pt will be safe for d/c home with adult Dtr again or higher level of care needed. SONIA Vargas Discharge Planning/Care Management CM Discharge Assessment Start: 02/18/18 13:48 Freq: Status: Active Protocol: Document 02/18/18 13:48 BF (Rec: 02/18/18 13:51 BF [id number]) Discharge Planning Assessment Assigned Rn Acls SONIA Fuentes Advance Directives? No: Declines further information Advance Directives on File No History Provided By Patient Medical Record Has Patient been admitted in last 30 No days? Comment Here in November 2017 for knee surgery Prior Living Arrangements House Household Members children Comment Lives with adult Dtr Natalie Type of transporation used prior to Relies on Others admit Independent with ADL's Yes Is patient alert and oriented? Yes Needs Assistance With Managing Medications Home Chores / Shopping Caregiver for Another No Patient/Family Preference Home with Home Health Comment Waiting for surgery to be completed and PT/OT eval and recommendations Barriers to Discharge No Discharge Plan Home Transportation Arrangement Pending progress, Dtr may be able to provide transport Whiteboard Updated in Patient Room with No name and ext. # of Rn Acls Comment Patient off the floor to surgery Review Status In Process Next Review Type Continued Stay Review
[2018-02-18] MEDS: SODIUM CHLORIDE 0.9% 1,000 ML 100 ML IV (15:46)
--- NOTE | 2018-02-18 17:02 | PT.IIE ---
Current Diagnoses Spondylolisthesis, lumbar region (02/18/18) Other spondylosis with radiculopathy, lumbar region (02/18/18) Spinal stenosis, lumbar region with neurogenic claudication (02/18/18) Surgery Performed Operation Date: 02/18/18 07:45 Actual Procedures p L3-4,L4-5,L5-S1 TLIF w/Posterior Instru. - Sara Carreon MD Surgical History (Last Updated 02/02/18 @ 12:07 by Yusra Patel RN) History of arthroplasty of left knee (Acute) History of arthroplasty of right knee (Acute) Hx of cholecystectomy (Acute) Medical History (Last Updated 02/02/18 @ 12:09 by Yusra Patel RN) HTN (hypertension) (Acute) Hard of hearing (Acute) Numbness and tingling of both feet (Acute) RBBB (right bundle branch block with left anterior fascicular block) (Acute) Rheumatoid arthritis (Acute) Physical Therapy Inpatient Evaluation/Re-Eval M1 PT/OT-IP Prior Functional Status Start: 02/18/18 17:02 Freq: NEEDED Status: Active Protocol: Document 02/18/18 17:02 DLM (Rec: 02/18/18 17:14 DL [id number]) Medical Review Prior Functional Status Medical History Reviewed Yes Diet/Fluid Consistency Regular Communication WNL, mild hard of hearing, glasses Mobility and Gait Independent without device, community distances Activities of Daily Living and IADL's Independent Prior Functional Level (Other details) 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 4, left rail going up Home Environment Standard Height Toilet Tub/Shower Home Equipment Front Wheel Walker Quad Cane Straight Cane Grab Bars In Shower M2 PT-IP Current Condition Start: 02/18/18 17:02 Freq: NEEDED Status: Active Protocol: Document 02/18/18 17:02 DLM (Rec: 02/18/18 17:14 DL [id number]) Physical Therapy Current Condition Current Condition Evaluation Date 02/18/18 Treatment Diagnosis L3-S1 TLIF Onset Date 02/18/18 Precautions Lumbar Precautions Log Roll No Twisting Limit Bending Lifting Restriction of 10 lbs Gait Belt above Incisional Area Weight Bearing Status Weight Bearing Status Full Weight Bearing M3 PT-IP Subjective Start: 02/18/18 17:02 Freq: NEEDED Status: Active Protocol: Document 02/18/18 17:02 DL (Rec: 02/18/18 17:14 [facility] [id number]) Subjective Physical Therapy Visit Type Type Initial Evaluation Visit Start Time 16:20 Visit Stop Time 17:02 Total Visit Minutes 42 Number of ROOFING CONTRACTOR Visits 0 Physical Therapy Visit Comments Patient Comments Her throat is scratchy, back pain is better than it was Short Term Goals home with daughters to help her Therapy Pain Assessment Pain When Pain Assessed After Treatment Pain Present Pain Present Pain Reported Location Lower Back Intensity 5 Scale Used Numeric (1 - 10) Description Aching Pain Management Techniques Re-positioning M4 PT-IP Mobility and Gait Start: 02/18/18 17:02 Freq: NEEDED Status: Active Protocol: Document 02/18/18 17:02 DL (Rec: 02/18/18 17:14 [facility] [id number]) PT-Bed Mobility Assessment Rolling Type of Rolling Log Rolling Level of Assist Contact Guard Assistance Minimal Assistance Supine to Sit Supine to Sit Contact Guard Assistance Minimal Assistance Scooting Scooting to Edge of Bed Standby Assistance PT-Transfer Assessment Sit to and From Stand Sit to and from Stand Contact Guard Assistance Use of Upper Extremities Equipment Transfer Assistive Device Gait Belt Front Wheeled Walker Transfers Transfer Destination Chair Transfer Technique Stand Step Pivot Transfer Ability Level of Assist Contact Guard Assistance Minimal Assistance Comments Mobility Comments up to recliner with daughters visiting, mild light headedness with initial sitting edge of bed but it resolved PT-Balance Assessment Sitting Balance and Reactions Static Sitting Balance Ability Normal Dynamic Sitting Balance Ability Good Standing Balance and Reactions Static Standing Balance Ability Fair Dynamic Standing Balance Ability Fair Device Used FWW M5 PT-IP Objective Assessments Start: 02/18/18 17:02 Freq: NEEDED Status: Active Protocol: Document 02/18/18 17:02 DL (Rec: 02/18/18 17:14 [facility] [id number]) Orientation Orientation/Cognition Level of Alertness Alert Orientation Name Age Birthday Month Date Year Day of Week Place Situation Language Function Ability No Deficits Noted Safety Awareness Understands Safety Issues Memory Description No Deficits Noted Gross Range of Motion Upper Extremity ROM Assessment Within Functional Limits Lower Extremity ROM Assessment Within Functional Limits Impairments trunk ROM limited post-op with precautions Strength Upper Extremity Strength Assessment Within Functional Limits Lower Extremity Strength Assessment Bilaterally Impaired Comments Strength Comments LE MMT not fully performed due to post-op but moving functionally, she describes mild LE weakness in standing Coordination Assessment Gross Coordination Gross Coordination WNL Sensation Assessment Sensation Gross Sensation WNL Comments Sensation Comments no numbness/tingling in LE's, no pain in LE's Muscle Tone Muscle Tone WNL Yes M6 PT-IP Treatment Start: 02/18/18 17:02 Freq: NEEDED Status: Active Protocol: Document 02/18/18 17:02 DLM (Rec: 02/18/18 17:14 DLM [id number]) Physical Therapy Treatment Education Education Provided Precautions Safety Other Treatments Other Treatment Performed Initiated post-op education with her Daughters also M7 PT-IP Assessment and Plan Start: 02/18/18 17:02 Freq: NEEDED Status: Active Protocol: Document 02/18/18 17:02 DLM (Rec: 02/18/18 17:14 DLM [id number]) PT Summary Assessment and Plan Potential Rehabilitation Potential Good Status of Condition at Evaluation Evolving Summary Impairments Pain ROM Strength Balance Bed Mobility Transfers Gait Activity Tolerance Assessment Summary [facility]. She had mild light-headedness initially with sitting but it resolved with seated rest. She has two supportive daughters who arrived during this visit. Pt plans to go home with her daughters to help. Goals Bed Mobility Goal Independent Transfer Goal Independent Front Wheeled Walker Gait Goal Independent Front Wheel Walker Gait Distance 100 feet Other Goals -up and down 4 steps with one rail and min assist Days to Meet Goals 3 Frequency of Treatment Frequency Of Treatment Twice a Day Treatment Plan Physical Therapy Treatment Plan Bed Mobility Training Transfer Training Gait Training Therapeutic Exercise Balance Retraining Post Op Education Discharge Planning Hot or Cold Pack Other Recommendations and Next Treatment provide post-op packet Focus Recommendations To Nursing Amount of Assist Needed 1 Person Assist Discharge Recommendations PT Discharge Recommendations Home with Assistance Other Discharge Recommendations continue to assess if home health PT will be needed
--- NOTE | 2018-02-18 17:16 | PC.NURSE ---
late entry: Patient arrived 1400, sleepy but easily arousable. VSS. Denies pain or other complaint. Moving all extremities. Campos in place and intact, draining clear yellow urine. Dressing to back CDI without drainage noted. 96% on 2L NC. Bed alarm activated for safety, and call light placed within reach.
--- NOTE | 2018-02-18 18:18 | PC.NURSE ---
Yumi shift note: Patient awake and alert, up with PT to chair, with excellent PO intake, No c/o pain or nausea. CMS intact to BLE. IVF infusing. FC draining to gravity. VSS and afebrile. Call light within reach.
[2018-02-18] MEDS: OXYCODONE IR 5 MG TABLET 10 MG PO (18:42)
[2018-02-18] MEDS: SENNOSIDES 8.6 MG TABLET 17.2 MG PO (21:05)
[2018-02-18] MEDS: sulfaSALAzine 500 MG TABLET 1000 MG PO (21:05)
[2018-02-18] MEDS: DOCUSATE 100 MG CAPSULE PO (21:05)
[2018-02-19] VITALS (9 sets, daily range): BP systolic 107–146; BP diastolic 48–76; PULSE 62–83; RESP 16–18; TEMP 36.3–37.1; O2SAT 93–97; BMI 23.8
[2018-02-19] MEDS: CEFAZOLIN 2 GM/100 ML FROZ.PIGGY IV (00:23)
[2018-02-19] MEDS: OXYCODONE IR 5 MG TABLET 10 MG PO ×3 (00:27→20:47)
[2018-02-19 06:03] LABS: Hematocrit 29.2 % (36-46); Hemoglobin 9.7 g/dL (12.0-16.0)
[2018-02-19] MEDS: SODIUM CHLORIDE 0.9% 1,000 ML 100 ML IV (06:30)
--- NOTE | 2018-02-19 07:38 | PM.PNPO.1 ---
Subjective Date Patient Seen: 02/19/18 Time Patient Seen: 07:40 Interval history: Post op day 1 status post L3-S1 TLIF w/ posterior instrumentation with Dr. Carreon. Patient is sitting upright in bed comfortably without any signs of distress. Patient denies any pain at this time. Her pain is well managed with oxycodone 10mg. Piña intact. Patient started PT yesterday; was able to sit in chair. Patient denies any vomiting, fever, chest pain, nausea or SOB. Exam Vital Signs (past 8 hours): - 02/19/18 00:30 02/19/18 03:35 Temperature 97.3 F L 97.5 F L Pulse Rate 65 62 Respiratory Rate 18 18 Blood Pressure 130/76 133/63 Pulse Oximetry 97 97 Oxygen Delivery Method Room Air Oxygen Flow Rate 2 Narrative Exam Narrative: Patient is AOx3. Patient appears as a well developed woman in no acute distress. Piña intact. Lumbar dressing is intact with minimal drainage. Dorsalis pedis and radial pulses are 2+ and symmetric. Sensation to LE intact with light touch bilaterally. Muscle strength 5/5 in dorsiflexion, plantarflexion and director of public safety bilaterally. Compression device intact LE bilaterally. Calfs are non tender, soft and compressible bilaterally. Objective Labs Result Diagrams: 02/19/18 05:48 Labs: Laboratory Results - last 24 hr 02/19/18 05:48 Hgb 9.7 L Hct 29.2 L Assessment & Plan Post-op Postoperative Procedures Operation Date: 02/18/18 07:45 Actual Procedures Side Surgeon p L3-4,L4-5,L5-S1 TLIF w/Posterior Instru. Sara Carreon MD Postoperative day: 1 Postoperative status: doing well Postoperative plan: routine post-op care Postoperative plan narrative: Continue mobilizing with PT. Continue pain management. Continue DVT compression device. D/C piña once more ambulatory. Likely to be discharged home tomorrow. Time Spent With Patient less than 15 minutes Quality VTE Deep Vein Thrombosis/Pulmonary Embolism Present on Admission: No
--- NOTE | 2018-02-19 07:47 | P.PN_ITS ---
Subjective Date Patient Seen: 02/19/18 Time Patient Seen: 07:40 Interval history: Post op day 1 status post L3-S1 TLIF w/ posterior instrumentation with Dr. Carreon. Patient is sitting upright in bed comfortably without any signs of distress. Patient denies any pain at this time. Her pain is well managed with oxycodone 10mg. Piña intact. Patient started PT yesterday ; was able to sit in chair. Patient denies any vomiting, fever, chest pain, nausea or SOB. Exam Vital Signs (past 8 hours): - 02/19/18 00:30 02/19/18 03:35 Temperature 97.3 F L 97.5 F L Pulse Rate 65 62 Respiratory Rate 18 18 Blood Pressure 130/76 133/63 Pulse Oximetry 97 97 Oxygen Delivery Method Room Air Oxygen Flow Rate 2 Narrative Exam Narrative: Patient is AOx3. Patient appears as a well developed woman in no acute distress. Piña intact. Lumbar dressing is intact with minimal drainage. Dorsalis pedis and radial pulses are 2+ and symmetric. Sensation to LE intact with light touch bilaterally. Muscle strength 5/5 in dorsiflexion, plantarflexion and party demonstrator bilaterally. Compression device intact LE bilaterally. Calfs are non tender, soft and compressible bilaterally. Objective Labs Result Diagrams: 02/19/18 05:48 Labs: Laboratory Results - last 24 hr 02/19/18 05:48 Hgb 9.7 L Hct 29.2 L Assessment & Plan Post-op Postoperative Procedures Operation Date: 02/18/18 07:45 Actual Procedures Side Surgeon p L3-4,L4-5,L5-S1 TLIF w/Posterior Instru. Sara Carreon MD Postoperative day: 1 Postoperative status: doing well Postoperative plan: routine post-op care Postoperative plan narrative: Continue mobilizing with PT. Continue pain management. Continue DVT compression device. D/C piña once more ambulatory. Likely to be discharged home tomorrow. Time Spent With Patient less than 15 minutes Quality VTE Deep Vein Thrombosis/Pulmonary Embolism Present on Admission: No
--- NOTE | 2018-02-19 09:30 | PT.IPTN ---
Current Diagnoses Spondylolisthesis, lumbar region (02/18/18) Other spondylosis with radiculopathy, lumbar region (02/18/18) Spinal stenosis, lumbar region with neurogenic claudication (02/18/18) Surgery Performed Operation Date: 02/18/18 07:45 Actual Procedures p L3-4,L4-5,L5-S1 TLIF w/Posterior Instru. - Sara Carreon MD Physical Therapy Treatment Note M2 PT-IP Current Condition Start: 02/18/18 17:02 Freq: NEEDED Status: Active Protocol: Document 02/18/18 17:02 DLM (Rec: 02/18/18 17:14 DLM [id number]) Physical Therapy Current Condition Current Condition Evaluation Date 02/18/18 Treatment Diagnosis L3-S1 TLIF Onset Date 02/18/18 Precautions Lumbar Precautions Log Roll No Twisting Limit Bending Lifting Restriction of 10 lbs Gait Belt above Incisional Area Weight Bearing Status Weight Bearing Status Full Weight Bearing M3 PT-IP Subjective Start: 02/18/18 17:02 Freq: NEEDED Status: Active Protocol: Document 02/19/18 09:30 GGD (Rec: 02/19/18 11:15 GGD [email or web address]) Subjective Physical Therapy Visit Type Type Treatment Note Visit Start Time 09:15 Visit Stop Time 09:30 Total Visit Minutes 15 Number of SENIOR ELECTRONICS DESIGN ENGINEER Visits 1 Physical Therapy Visit Comments Patient Comments Pt states that she is wanting to walk. Therapy Pain Assessment Pain When Pain Assessed During Mobility Pain Present Pain Present Pain Reported Location Lower Back Intensity 2 Scale Used Numeric (1 - 10) Pain Management Techniques Timing of Activity with Medications M4 PT-IP Mobility and Gait Start: 02/18/18 17:02 Freq: NEEDED Status: Active Protocol: Document 02/19/18 09:30 GGD (Rec: 02/19/18 11:15 GGD [id number]) PT-Bed Mobility Assessment Rolling Type of Rolling Log Rolling Level of Assist Contact Guard Assistance Supine to Sit Supine to Sit Contact Guard Assistance Bedrails Scooting Scooting to Edge of Bed Standby Assistance PT-Transfer Assessment Sit to and From Stand Sit to and from Stand Contact Guard Assistance Use of Upper Extremities Equipment Transfer Assistive Device Gait Belt Front Wheeled Walker Transfers Transfer Destination Chair Transfer Ability Level of Assist Contact Guard Assistance Gait Assessment Gait Gait Assistance Required: Contact Guard Assist Distance (Feet) 75 Able to Maintain Weight Bearing Status Yes During Gait Assistive Devices Assistive Device Gait Belt Front Wheeled Walker Orthotic/Prosthetic Devices or Brace: No Gait Deviations General Gait Pattern Antalgic Decreased Stride Length Decreased Feet Clearance Flexed Trunk Factors Limiting Gait Function Factors Limiting Gait Function Decreased Activity Tolerance Decreased Strength Limited Range of Motion Pain M5 PT-IP Objective Assessments Start: 02/18/18 17:02 Freq: NEEDED Status: Active Protocol: Document 02/18/18 17:02 DLM (Rec: 02/18/18 17:14 DL [id number]) Orientation Orientation/Cognition Level of Alertness Alert Orientation Name Age Birthday Month Date Year Day of Week Place Situation Language Function Ability No Deficits Noted Safety Awareness Understands Safety Issues Memory Description No Deficits Noted Gross Range of Motion Upper Extremity ROM Assessment Within Functional Limits Lower Extremity ROM Assessment Within Functional Limits Impairments trunk ROM limited post-op with precautions Strength Upper Extremity Strength Assessment Within Functional Limits Lower Extremity Strength Assessment Bilaterally Impaired Comments Strength Comments LE MMT not fully performed due to post-op but moving functionally, she describes mild LE weakness in standing Coordination Assessment Gross Coordination Gross Coordination WNL Sensation Assessment Sensation Gross Sensation WNL Comments Sensation Comments no numbness/tingling in LE's, no pain in LE's Muscle Tone Muscle Tone WNL Yes M6 PT-IP Treatment Start: 02/18/18 17:02 Freq: NEEDED Status: Active Protocol: Document 02/19/18 09:30 GGD (Rec: 02/19/18 11:15 GGD [email or web address]) Physical Therapy Treatment Education Education Provided Precautions M7 PT-IP Assessment and Plan Start: 02/18/18 17:02 Freq: NEEDED Status: Active Protocol: Document 02/19/18 09:30 GGD (Rec: 02/19/18 11:15 GGD [email or web address]) PT Summary Assessment and Plan Summary Assessment Summary Pt improving with mobility. She needed less assist with bed mobility. She was able to progress her gait distance. She was mildly unsteady with gait, but no LOB. She plans to go home with help from daughters. Treatment Plan Physical Therapy Treatment Plan Bed Mobility Training Transfer Training Gait Training Therapeutic Exercise Balance Retraining Post Op Education Discharge Planning Hot or Cold Pack Other Recommendations and Next Treatment 4 stairs with on rail Focus Recommendations To Nursing Amount of Assist Needed 1 Person Assist Discharge Recommendations PT Discharge Recommendations Home with Assistance
[2018-02-19] MEDS: LEFLUNOMIDE 20 MG TABLET PO (09:42)
[2018-02-19] MEDS: LISINOPRIL 20 MG TABLET PO (09:42)
[2018-02-19] MEDS: DOCUSATE 100 MG CAPSULE PO ×2 (09:42→20:48)
[2018-02-19] MEDS: ACETAMINOPHEN 325 MG TABLET 650 MG PO ×2 (09:42→16:10)
[2018-02-19] MEDS: sulfaSALAzine 500 MG TABLET 1000 MG PO ×2 (09:42→20:48)
--- NOTE | 2018-02-19 13:49 | CM.DPC ---
Addendum entered by SONIA Barron 02/20/18 15:01: Met w/pt today, DC order for home is in place. Spoke w/pt and her dtrs at bedside, dtrs ready to take pt home and expect no barriers to pt's safe DC home w/their assist. JOSE DE JESUS Original Note: DCP Cont: Attempted to chk in w/pt at bedside and she was sleeping, did not wake up. According to notes, pt is up walking w/PT and rec is home w/dtr. No barriers expected for safe DC home w/family. This PARTY PLAN DEALER available if needs change or concerns arise. JOSE DE JESUS
--- NOTE | 2018-02-19 14:58 | PT.IPTN ---
Current Diagnoses Spondylolisthesis, lumbar region (02/18/18) Other spondylosis with radiculopathy, lumbar region (02/18/18) Spinal stenosis, lumbar region with neurogenic claudication (02/18/18) Surgery Performed Operation Date: 02/18/18 07:45 Actual Procedures p L3-4,L4-5,L5-S1 TLIF w/Posterior Instru. - Sara Carreon MD Physical Therapy Treatment Note M2 PT-IP Current Condition Start: 02/18/18 17:02 Freq: NEEDED Status: Active Protocol: Document 02/18/18 17:02 DLM (Rec: 02/18/18 17:14 DLM [id number]) Physical Therapy Current Condition Current Condition Evaluation Date 02/18/18 Treatment Diagnosis L3-S1 TLIF Onset Date 02/18/18 Precautions Lumbar Precautions Log Roll No Twisting Limit Bending Lifting Restriction of 10 lbs Gait Belt above Incisional Area Weight Bearing Status Weight Bearing Status Full Weight Bearing M3 PT-IP Subjective Start: 02/18/18 17:02 Freq: NEEDED Status: Active Protocol: Document 02/19/18 14:51 GGD (Rec: 02/19/18 14:58 GGD [email or web address]) Subjective Physical Therapy Visit Type Type Treatment Note Visit Start Time 14:20 Visit Stop Time 14:50 Total Visit Minutes 30 Number of SPRING COVERER Visits 2 Physical Therapy Visit Comments Patient Comments Pt willing to get up, but then wants to go back to bed. Therapy Pain Assessment Pain When Pain Assessed At Rest Pain Present Pain Present Pain Reported Location Lower Back Intensity 3 Scale Used Numeric (1 - 10) M4 PT-IP Mobility and Gait Start: 02/18/18 17:02 Freq: NEEDED Status: Active Protocol: Document 02/19/18 14:51 GGD (Rec: 02/19/18 14:58 GGD [email or web address]) PT-Bed Mobility Assessment Rolling Type of Rolling Log Rolling Level of Assist Standby Assistance Supine to Sit Supine to Sit Contact Guard Assistance Bedrails Sit to Supine Sit to Supine Minimal Assistance Bedrails Scooting Scooting to Edge of Bed Standby Assistance PT-Transfer Assessment Sit to and From Stand Sit to and from Stand Contact Guard Assistance Use of Upper Extremities Equipment Transfer Assistive Device Gait Belt Front Wheeled Walker Transfers Transfer Destination Bed Transfer Ability Level of Assist Contact Guard Assistance Comments Mobility Comments Pt need cues for full log roll . Gait Assessment Gait Gait Assistance Required: Contact Guard Assist Distance (Feet) 40 Assistive Devices Assistive Device Gait Belt Front Wheeled Walker Gait Deviations General Gait Pattern Antalgic Decreased Stride Length Decreased Feet Clearance Flexed Trunk Factors Limiting Gait Function Factors Limiting Gait Function Decreased Activity Tolerance Decreased Strength Limited Range of Motion Pain Stair Climbing Assessment Evaluation Level of Assist On Stairs Minimal Assistance Devices Stair Climbing Assistive Devices Left Railing Technique/Endurance Stair Climbing Direction Ascend and Descend Stair Climbing Technique Step to Step Number of Steps Climbed 3 Query Text: Stair Climbing Set # Repetitions (reps) 1 Comments Stair Climbing Comments Hand hold on the right and min cues. M5 PT-IP Objective Assessments Start: 02/18/18 17:02 Freq: NEEDED Status: Active Protocol: Document 02/18/18 17:02 DLM (Rec: 02/18/18 17:14 DL [id number]) Orientation Orientation/Cognition Level of Alertness Alert Orientation Name Age Birthday Month Date Year Day of Week Place Situation Language Function Ability No Deficits Noted Safety Awareness Understands Safety Issues Memory Description No Deficits Noted Gross Range of Motion Upper Extremity ROM Assessment Within Functional Limits Lower Extremity ROM Assessment Within Functional Limits Impairments trunk ROM limited post-op with precautions Strength Upper Extremity Strength Assessment Within Functional Limits Lower Extremity Strength Assessment Bilaterally Impaired Comments Strength Comments LE MMT not fully performed due to post-op but moving functionally, she describes mild LE weakness in standing Coordination Assessment Gross Coordination Gross Coordination WNL Sensation Assessment Sensation Gross Sensation WNL Comments Sensation Comments no numbness/tingling in LE's, no pain in LE's Muscle Tone Muscle Tone WNL Yes M6 PT-IP Treatment Start: 02/18/18 17:02 Freq: NEEDED Status: Active Protocol: Document 02/19/18 14:51 GGD (Rec: 02/19/18 14:58 GGD [email or web address]) Physical Therapy Treatment Education Education Provided Precautions M7 PT-IP Assessment and Plan Start: 02/18/18 17:02 Freq: NEEDED Status: Active Protocol: Document 02/19/18 14:51 GGD (Rec: 02/19/18 14:58 GGD [email or web address]) PT Summary Assessment and Plan Summary Assessment Summary Pt slowly improving with mobility. She needs cues for log roll. She did need hand hold assist with stair. She was stable with gait and stairs. Frequency of Treatment Frequency Of Treatment Twice a Day Treatment Plan Physical Therapy Treatment Plan Bed Mobility Training Transfer Training Gait Training Therapeutic Exercise Balance Retraining Post Op Education Discharge Planning Hot or Cold Pack Other Recommendations and Next Treatment 4 stairs with on rail and Focus family training. Recommendations To Nursing Amount of Assist Needed 1 Person Assist Discharge Recommendations PT Discharge Recommendations Home with Assistance
--- NOTE | 2018-02-19 15:07 | OT.IP.EVAL ---
Current Diagnoses Spondylolisthesis, lumbar region (02/18/18) Other spondylosis with radiculopathy, lumbar region (02/18/18) Spinal stenosis, lumbar region with neurogenic claudication (02/18/18) Surgery Performed Operation Date: 02/18/18 07:45 Actual Procedures p L3-4,L4-5,L5-S1 TLIF w/Posterior Instru. - Sara Carreon MD Past Medical History (Last Updated 02/02/18 @ 12:09 by Yusra Patel RN) HTN (hypertension) (Acute) Hard of hearing (Acute) Numbness and tingling of both feet (Acute) RBBB (right bundle branch block with left anterior fascicular block) (Acute) Rheumatoid arthritis (Acute) Surgical History (Last Updated 02/02/18 @ 12:07 by Yusra Patel RN) History of arthroplasty of left knee (Acute) History of arthroplasty of right knee (Acute) Hx of cholecystectomy (Acute) Occupational Therapy Inpatient Evaluation/Re-Eval M1 PT/OT-IP Prior Functional Status Start: 02/18/18 17:02 Freq: NEEDED Status: Active Protocol: Document 02/19/18 15:07 PJLouis (Rec: 02/19/18 16:42 PJ [id number]) Medical Review Prior Functional Status Medical History Reviewed Yes Diet/Fluid Consistency Regular Communication WNL, mild hard of hearing, glasses Mobility and Gait Independent without device, community distances Activities of Daily Living and IADL's Independent, her daughter does all IADLS, erp analyst. Pt manages her own meds/ finances. Prior Functional Level (Other details) 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 4, left rail going up Home Environment Standard Height Toilet Tub/Shower Home Equipment Front Wheel Walker Quad Cane Straight Cane Grab Bars In Shower Employment Status Retired Additional Social History Comment Pt lives with her daughter and adult grandson (both work, but daughter taking some time off, but unsure how much) M2 OT-IP Current Condition Start: 02/19/18 16:30 Freq: Status: Active Protocol: Document 02/19/18 15:07 PJLouis (Rec: 02/19/18 16:42 PJM [id number]) Occupational Therapy Current Condition Current Condition Evaluation Date 02/19/18 Treatment Diagnosis decreased self care/mobility s /p L3-S1 fusion Diagnosis Onset Date 02/18/18 Post Operative Precautions Lumbar Precautions Log Roll No Twisting Limit Bending Lifting Restriction of 10 lbs Gait Belt above Incisional Area Weight Bearing Status Weight Bearing Status Full Weight Bearing M3 OT- IP Subjective and Pain Start: 02/19/18 16:30 Freq: Status: Active Protocol: Document 02/19/18 15:07 PJ (Rec: 02/19/18 16:42 PJ [id number]) OT- Subjective Occupational Therapy Visit Type Type Initial Evaluation Visit Start Time 14:45 Visit Stop Time 15:07 Notes No family here for education this session. Occupational Therapy Visit Comments Patient Comments I wish my daughter was here now to hear this. Patient/Caregiver Goals to go home, have less pain, increase activity at home OT Pain Assessment Pain When Pain Assessed After Treatment Pain Present Pain Present Pain Reported Location Lower Back Intensity 4 Scale Used Numeric (1 - 10) Description Aching Chronic Pain Behaviors Guarding M4 OT- IP ADL's Start: 02/19/18 16:30 Freq: Status: Active Protocol: Document 02/19/18 15:07 PJM (Rec: 02/19/18 16:42 PJ [id number]) OT [id number] General Evaluation Self-Feeding Ability Independent OT ADL-Grooming General Evaluation Grooming Ability Standby Assistance Areas Needing Assistance Face Washing Comments OT Grooming Comments in bed after set up OT ADL-Oral Care Comments Oral Care Comments pt declined this session OT ADL-Dressing General Eval Lower Body Dressing Ability Maximum Assistance Assistive Devices Dressing Assistive Devices Long Handled Shoe Horn Supervisor Engine Repair Sock Aid Comments OT Dressing Comments Began education re: lower body dressing with adaptive equipment within lumbar spine precautions. Pt has billboard poster at home OT ADL-Toileting General Evaluation Toileting Ability Total Assistance Areas Needing Assistance Empty Catheter or Colostomy Comments OT Toileting Comments pt still has piña OT ADL-Bathing Comments OT Bathing Comments to be assessed as activity level improves M5 OT- IP IADL's Start: 02/19/18 16:30 Freq: Status: Active Protocol: Document 02/19/18 15:07 PJM (Rec: 02/19/18 16:42 PJ [id number]) OT-Instrumental Activities of Daily Living Deficits IADL Deficits Identified Deficits Home Safety Awareness Awareness of Need for Assistance at Home Good Awareness Ability to Problem Solve Emergency Able to Problem Solve Situations Medication Management Medication Management No Deficits Identified Money Management Money Management No Deficits Identified Meal Preparation Meal Preparation Caregiver Provides Assist Meal Preparation Comments daughter does all IADLS at home Wharf Tally Clerk Wharf Tally Clerk Caregiver Provides Assist Wharf Tally Clerk Comments daughter does all IADLS at home Driving Driving Caregiver Provides Assist Driving Comments daughter does all IADLS at home, pt does not drive M6 OT- IP Functional Cognition Start: 02/19/18 16:30 Freq: Status: Active Protocol: Document 02/19/18 15:07 PJ (Rec: 02/19/18 16:42 [facility] [id number]) Cognitive Factors Limiting Selfcare Function Cognitive Ability Level of Alertness Alert Patient Orientation Name Age Birthday Month Date Year Day of Week Place Situation Attention Span Ability Capable of Focused Attention Ability to Follow Commands Able to Follow One Step Commands Cognitive Comments Cognitive Assessment Comments Pt recalls 1/3 precautions and needs verbal cues to problem solve adapted ADLS within precautions. OT- Vision and Hearing OT- Hearing Assessment OT- Hearing Assessment Hearing Impaired Use of Hearing Aids OT- Vision Assessment Visual Acuity WFL Glasses All The Time Vision Assessment Comments pt denies any recent vision changes; hearing aids at home M7 OT- IP Mobility and Balance Start: 02/19/18 16:30 Freq: Status: Active Protocol: Document 02/19/18 15:07 PJ (Rec: 02/19/18 16:42 [facility] [id number]) OT-Transfer Assessment Comments Mobility Comments see P.T. notes, pt declined OOB this session due to fatigue OT- Gait Assessment Comments Gait Ability Comments see P.T. notes, pt declined OOB this session due to fatigue OT- Balance Assessment Comments Other Balance Tests/Deviations/Treatment see P.T. notes, pt declined : OOB this session due to fatigue M8 OT- IP Objective Assessments Start: 02/19/18 16:30 Freq: Status: Active Protocol: Document 02/19/18 15:07 PJ (Rec: 02/19/18 16:42 [facility] [id number]) OT Gross Range of Motion Upper Extremity Range of Motion Assessment Within Functional Limits OT Strength Upper Extremity Strength Assessment Within Functional Limits OT- Coordination Assessment Comments Coordination Comments BUE WFL OT-Muscle Tone Assessment Muscle Tone WNL Yes OT Sensation Assessment Comments Summary Comments Pt denies deficits in BUEs M9 OT- IP Assessment and Plan Start: 02/19/18 16:30 Freq: Status: Active Protocol: Document 02/19/18 15:07 PJM (Rec: 02/19/18 16:42 PJM [id number]) OT Summary Assessment and Plan Potential Rehabilitation Potential Good Analytic Complexity at Evaluation Low Summary OT Impairments Pain Balance Functional Mobility Grooming Dressing Toileting Bathing Toilet Transfers Shower Transfers Assessment Summary Low complexity OT assessment completed with emphasis on self care skills within lumbar spine precautions. Pt currently has performance deficits in all functional mobility/transfers, standing grooming, lower body dressing, bathing, toileting. Pt plans to return home with 24 hr assist from daughter for first several days. Goals Grooming Goal Independent Dressing Goal Standby Assistance Toileting Goal Independent Bathing Goal Standby Assistance Toilet Transfer Goal Standby Assistance Shower Transfer Goal Standby Assistance Patient/Caregiver Education Goal Demonstrate Post-Op Precautions Caregiver Independent Assisting Patient OT-Other Goals Grooming to be done standing with good body mechanics. Days to Meet Goals 2 Frequency of Treatment Frequency Of Treatment Once a Day Treatment Plan OT Treatment Plan ADL Training Functional Mobility Patient/Family Education Discharge Planning Discharge Recommendations OT Discharge Recommendations Home with Assistance Home Equipment Needs shower seat
[2018-02-19] MEDS: SENNOSIDES 8.6 MG TABLET 17.2 MG PO (20:48)
[2018-02-19] MEDS: SODIUM CHLORIDE 0.9% FLUSH 10 ML IV (20:48)
[2018-02-20] MEDS: OXYCODONE IR 5 MG TABLET 10 MG PO ×3 (00:53→08:30)
[2018-02-20 06:20] VITALS: BP 124/60; PULSE 74; RESP 16; TEMP 36.7; O2SAT 98
[2018-02-20 07:45] VITALS: O2SAT 95
[2018-02-20 08:10] VITALS: BP 137/68; PULSE 75; RESP 16; TEMP 36.9; O2SAT 95
[2018-02-20] MEDS: LISINOPRIL 20 MG TABLET PO (08:32)
[2018-02-20] MEDS: sulfaSALAzine 500 MG TABLET 1000 MG PO (08:32)
[2018-02-20] MEDS: LEFLUNOMIDE 20 MG TABLET PO (08:32)
[2018-02-20] MEDS: DOCUSATE 100 MG CAPSULE PO (08:32)
[2018-02-20] MEDS: SODIUM CHLORIDE 0.9% FLUSH 10 ML IV (08:32)
--- NOTE | 2018-02-20 09:25 | PT.IPTN ---
Current Diagnoses Spondylolisthesis, lumbar region (02/18/18) Other spondylosis with radiculopathy, lumbar region (02/18/18) Spinal stenosis, lumbar region with neurogenic claudication (02/18/18) Surgery Performed Operation Date: 02/18/18 07:45 Actual Procedures p L3-4,L4-5,L5-S1 TLIF w/Posterior Instru. - Sara Carreon MD Physical Therapy Treatment Note M2 PT-IP Current Condition Start: 02/18/18 17:02 Freq: NEEDED Status: Active Protocol: Document 02/18/18 17:02 DLM (Rec: 02/18/18 17:14 DLM [id number]) Physical Therapy Current Condition Current Condition Evaluation Date 02/18/18 Treatment Diagnosis L3-S1 TLIF Onset Date 02/18/18 Precautions Lumbar Precautions Log Roll No Twisting Limit Bending Lifting Restriction of 10 lbs Gait Belt above Incisional Area Weight Bearing Status Weight Bearing Status Full Weight Bearing M3 PT-IP Subjective Start: 02/18/18 17:02 Freq: NEEDED Status: Active Protocol: Document 02/20/18 09:25 GGD (Rec: 02/20/18 11:58 GGD [id number]) Subjective Physical Therapy Visit Type Type Treatment Note Visit Start Time 09:00 Visit Stop Time 09:25 Total Visit Minutes 25 Number of VOLUNTEER FIRE FIGHTER Visits 3 Physical Therapy Visit Comments Patient Comments Pt family is here and ready for training. Therapy Pain Assessment Pain When Pain Assessed At Rest Pain Present Pain Present Pain Reported Location Lower Back Scale Used didn't rate pain. M4 PT-IP Mobility and Gait Start: 02/18/18 17:02 Freq: NEEDED Status: Active Protocol: Document 02/20/18 09:25 GGD (Rec: 02/20/18 11:58 GGD [id number]) PT-Bed Mobility Assessment Rolling Type of Rolling Log Rolling Level of Assist Standby Assistance Supine to Sit Supine to Sit Contact Guard Assistance Bedrails Scooting Scooting to Edge of Bed Standby Assistance PT-Transfer Assessment Sit to and From Stand Sit to and from Stand Contact Guard Assistance Use of Upper Extremities Equipment Transfer Assistive Device Gait Belt Front Wheeled Walker Transfers Transfer Destination Chair Transfer Ability Level of Assist Contact Guard Assistance Gait Assessment Gait Gait Assistance Required: Contact Guard Assist Distance (Feet) 50 Assistive Devices Assistive Device Gait Belt Front Wheeled Walker Gait Deviations General Gait Pattern Antalgic Decreased Stride Length Decreased Feet Clearance Factors Limiting Gait Function Factors Limiting Gait Function Decreased Activity Tolerance Decreased Strength Limited Range of Motion Pain Stair Climbing Assessment Evaluation Level of Assist On Stairs Contact Guard Assistance Devices Stair Climbing Assistive Devices Front Wheel Walker Technique/Endurance Stair Climbing Direction Ascend and Descend Stair Climbing Technique Step to Step Number of Steps Climbed 3 Query Text: Stair Climbing Set # Repetitions (reps) 1 Comments Stair Climbing Comments Family training for stairs and bed mobility. M5 PT-IP Objective Assessments Start: 02/18/18 17:02 Freq: NEEDED Status: Active Protocol: Document 02/18/18 17:02 DLM (Rec: 02/18/18 17:14 DLM [id number]) Orientation Orientation/Cognition Level of Alertness Alert Orientation Name Age Birthday Month Date Year Day of Week Place Situation Language Function Ability No Deficits Noted Safety Awareness Understands Safety Issues Memory Description No Deficits Noted Gross Range of Motion Upper Extremity ROM Assessment Within Functional Limits Lower Extremity ROM Assessment Within Functional Limits Impairments trunk ROM limited post-op with precautions Strength Upper Extremity Strength Assessment Within Functional Limits Lower Extremity Strength Assessment Bilaterally Impaired Comments Strength Comments LE MMT not fully performed due to post-op but moving functionally, she describes mild LE weakness in standing Coordination Assessment Gross Coordination Gross Coordination WNL Sensation Assessment Sensation Gross Sensation WNL Comments Sensation Comments no numbness/tingling in LE's, no pain in LE's Muscle Tone Muscle Tone WNL Yes M6 PT-IP Treatment Start: 02/18/18 17:02 Freq: NEEDED Status: Active Protocol: Document 02/20/18 09:25 GGD (Rec: 02/20/18 11:58 GGD [id number]) Physical Therapy Treatment Education Education Provided Precautions M7 PT-IP Assessment and Plan Start: 02/18/18 17:02 Freq: NEEDED Status: Active Protocol: Document 02/20/18 09:25 GGD (Rec: 02/20/18 11:58 GGD [id number]) PT Summary Assessment and Plan Summary Assessment Summary Pt improving with bed mobility , she needed less cues and assistance. Family is able to assist with cues and stairs. She was safe and stable with gait and stairs. Frequency of Treatment Frequency Of Treatment Twice a Day Treatment Plan Physical Therapy Treatment Plan Bed Mobility Training Transfer Training Gait Training Therapeutic Exercise Balance Retraining Post Op Education Discharge Planning Hot or Cold Pack Recommendations To Nursing Amount of Assist Needed 1 Person Assist Discharge Recommendations PT Discharge Recommendations Home with Assistance
--- NOTE | 2018-02-20 09:51 | PM.PNPO.1 ---
Subjective Date Patient Seen: 02/20/18 Time Patient Seen: 09:51 Interval history: Patient is postop day 2. Status post lumbar fusion by Dr. Carreon. Has ambulated some with physical therapy. She is a little unsure of herself with getting in and out of bed. Campos catheter was removed this morning. Has not had a bowel movement yet. Daughters present in the room and feels that she is not ready to be discharged home today. The pain tolerable with pain medication. Exam Vital Signs (past 8 hours): - 02/20/18 06:20 02/20/18 08:10 Temperature 98.0 F 98.4 F Pulse Rate 74 75 Respiratory Rate 16 16 Blood Pressure 124/60 137/68 Pulse Oximetry 98 95 Oxygen Delivery Method Room Air Oxygen Flow Rate 0 Narrative Exam Narrative: Patient in bed appears comfortable. Alert orient x3. Back dressing clean dry and intact. 5/5 BLE strength. Neurovascular status intact. Bilateral calves soft and nontender. Objective Labs Result Diagrams: 02/19/18 05:48 Assessment & Plan Post-op Postoperative Procedures Operation Date: 02/18/18 07:45 Actual Procedures Side Surgeon p L3-4,L4-5,L5-S1 TLIF w/Posterior Instru. Sara Carreon MD Postop day 2. Continue ambulating with physical therapy. OT is going to work with family with animal care attendant training. Continue DVT prophylaxix. Continue pain medication as needed. Medications for constipation are ordered and chart and will be given to patient. Anticipate discharge home tomorrow. Quality VTE Deep Vein Thrombosis/Pulmonary Embolism Present on Admission: No
--- NOTE | 2018-02-20 09:55 | P.PN_ITS ---
Subjective Date Patient Seen: 02/20/18 Time Patient Seen: 09:51 Interval history: Patient is postop day 2. Status post lumbar fusion by Dr. Carreon. Has ambulated some with physical therapy. She is a little unsure of herself with getting in and out of bed. Campos catheter was removed this morning. Has not had a bowel movement yet. Daughters present in the room and feels that she is not ready to be discharged home today. The pain tolerable with pain medication. Exam Vital Signs (past 8 hours): - 02/20/18 06:20 02/20/18 08:10 Temperature 98.0 F 98.4 F Pulse Rate 74 75 Respiratory Rate 16 16 Blood Pressure 124/60 137/68 Pulse Oximetry 98 95 Oxygen Delivery Method Room Air Oxygen Flow Rate 0 Narrative Exam Narrative: Patient in bed appears comfortable. Alert orient x3. Back dressing clean dry and intact. 5/5 BLE strength. Neurovascular status intact. Bilateral calves soft and nontender. Objective Labs Result Diagrams: 02/19/18 05:48 Assessment & Plan Post-op Postoperative Procedures Operation Date: 02/18/18 07:45 Actual Procedures Side Surgeon p L3-4,L4-5,L5-S1 TLIF w/Posterior Instru. Sara Carreon MD Postop day 2. Continue ambulating with physical therapy. OT is going to work with family with child care director training. Continue DVT prophylaxix. Continue pain medication as needed. Medications for constipation are ordered and chart and will be given to patient. Anticipate discharge home tomorrow. Quality VTE Deep Vein Thrombosis/Pulmonary Embolism Present on Admission: No
--- NOTE | 2018-02-20 09:56 | OT.IP.TRT ---
Current Diagnoses Spondylolisthesis, lumbar region (02/18/18) Other spondylosis with radiculopathy, lumbar region (02/18/18) Spinal stenosis, lumbar region with neurogenic claudication (02/18/18) Surgery Performed Operation Date: 02/18/18 07:45 Actual Procedures p L3-4,L4-5,L5-S1 TLIF w/Posterior Instru. - Sara Carreon MD Occupational Therapy Treatment Note M2 OT-IP Current Condition Start: 02/19/18 16:30 Freq: Status: Active Protocol: Document 02/19/18 15:07 PJM (Rec: 02/19/18 16:42 PJM [id number]) Occupational Therapy Current Condition Current Condition Evaluation Date 02/19/18 Treatment Diagnosis decreased self care/mobility s /p L3-S1 fusion Diagnosis Onset Date 02/18/18 Post Operative Precautions Lumbar Precautions Log Roll No Twisting Limit Bending Lifting Restriction of 10 lbs Gait Belt above Incisional Area Weight Bearing Status Weight Bearing Status Full Weight Bearing M3 OT- IP Subjective and Pain Start: 02/19/18 16:30 Freq: Status: Active Protocol: Document 02/20/18 09:44 [facility] (Rec: 02/20/18 09:56 [facility] [id number]) OT- Subjective Occupational Therapy Visit Type Type Treatment Note Visit Start Time 09:25 Visit Stop Time 09:45 Total Visit Minutes 20 Occupational Therapy Visit Comments Patient Comments Pt agreeable to do family training with daughters. OT Pain Assessment Pain When Pain Assessed At Rest Pain Present Pain Present Denied Pain M4 OT- IP ADL's Start: 02/19/18 16:30 Freq: Status: Active Protocol: Document 02/20/18 09:44 [facility] (Rec: 02/20/18 09:56 [facility] [id number]) OT ADL-Grooming General Evaluation Grooming Ability Standby Assistance Comments OT Grooming Comments Able to stand from grooming needs. OT ADL-Dressing General Eval Lower Body Dressing Ability Minimal Assistance Comments OT Dressing Comments Able to use AED for LB dressing needs, pt's family ramírez good undersatnding to assist pt for all needs. OT ADL-Toileting General Evaluation Toileting Ability Contact Guard Assistance Comments OT Toileting Comments CGA to stand and able to do own pericare needs. Suggested may want ot have pads at night and use of quijano/cell phone to call for assist at night. M5 OT- IP IADL's Start: 02/19/18 16:30 Freq: Status: Active Protocol: Document 02/19/18 15:07 PJM (Rec: 02/19/18 16:42 PJM [id number]) OT-Instrumental Activities of Daily Living Deficits IADL Deficits Identified Deficits Home Safety Awareness Awareness of Need for Assistance at Home Good Awareness Ability to Problem Solve Emergency Able to Problem Solve Situations Medication Management Medication Management No Deficits Identified Money Management Money Management No Deficits Identified Meal Preparation Meal Preparation Caregiver Provides Assist Meal Preparation Comments daughter does all IADLS at home Recreation Manager Recreation Manager Caregiver Provides Assist Recreation Manager Comments daughter does all IADLS at home Driving Driving Caregiver Provides Assist Driving Comments daughter does all IADLS at home, pt does not drive M6 OT- IP Functional Cognition Start: 02/19/18 16:30 Freq: Status: Active Protocol: Document 02/20/18 09:44 [facility] (Rec: 02/20/18 09:56 [facility] [id number]) Cognitive Factors Limiting Selfcare Function Cognitive Ability Level of Alertness Alert Patient Orientation Name Age Birthday Month Date Year Day of Week Place Situation Attention Span Ability Capable of Focused Attention Capable of Sustained Attention Ability to Follow Commands Able to Follow One Step Commands Memory Description Short Term Impaired Safety Awareness Underestimates Need for Assistance Cognitive Comments Cognitive Assessment Comments Pt still needing reminders for back precautions and to keep FWW in front of her at all times. M7 OT- IP Mobility and Balance Start: 02/19/18 16:30 Freq: Status: Active Protocol: Document 02/20/18 09:44 [facility] (Rec: 02/20/18 09:56 [facility] [id number]) OT- Bed Mobility Assessment Sit to Supine Sit to Supine Assist Minimal Assistance OT-Transfer Assessment Sit to and From Stand Sit to and from Stand Contact Guard Assistance Transfers Transfer Ability Standby Assistance Contact Guard Assistance Technique Transfer Destination Bed Chair Toilet Transfer Technique Stand Step Pivot Devices Transfer Assistive Devices Gait Belt Front Wheeled Walker Comments Mobility Comments Pt's daughter able to safely assist with all transfers at this time. Educated family regarding transfer to car and option of sidelying with pillows. M8 OT- IP Objective Assessments Start: 02/19/18 16:30 Freq: Status: Active Protocol: Document 02/19/18 15:07 PJM (Rec: 02/19/18 16:42 PJM [id number]) OT Gross Range of Motion Upper Extremity Range of Motion Assessment Within Functional Limits OT Strength Upper Extremity Strength Assessment Within Functional Limits OT- Coordination Assessment Comments Coordination Comments BUE WFL OT-Muscle Tone Assessment Muscle Tone WNL Yes OT Sensation Assessment Comments Summary Comments Pt denies deficits in BUEs M9 OT- IP Assessment and Plan Start: 02/19/18 16:30 Freq: Status: Active Protocol: Document 02/20/18 09:44 [facility] (Rec: 02/20/18 09:56 [facility] [id number]) OT Summary Assessment and Plan Potential Rehabilitation Potential Good Analytic Complexity at Evaluation Low Summary Progress Towards Goals Progressing Toward Goals Slow Progress due to Cognition Assessment Summary Pt doing well and pt's family showing and demonstrating good safety and understanding to be able to safely assist pt for all ADl needs. Goals Days to Meet Goals 1 Frequency of Treatment Frequency Of Treatment Once a Day Treatment Plan OT Treatment Plan ADL Training Functional Mobility Patient/Family Education Discharge Planning Other Treatment Recommendations and Next Finalize all training with Treatment Focus family, shower if appropriate. Discharge Recommendations OT Discharge Recommendations Home with Assistance Home Equipment Needs shower seat
--- NOTE | 2018-02-20 10:13 | PC.NURSE ---
Addendum entered by Katherine Rangel R.N. 02/20/18 12:43: DC - reviewed dc instructions with pt and daughters, paperwork provided, belongings gathered, including clothing, glasses and own fww, family health nurse practitioner escorted via wc to daughter's car. Original Note: Addendum entered by Katherine Rangel R.N. 02/20/18 11:17: DC -script for oxycodone was given to dtr prior to discharge to fill. Original Note: AM NOTE - pt is alert, moderately [place], no aids here, hr 68, ra 95%, back barrier dsg with shadow drainage, removed this am, parallel albert intact w/surrounding bruising, no drainage, replaced with coversite dsg, piña cath w/clear yellow urine, balloon deflated and dc'd w/o difficulty, hat placed in br for void and pt did void following phys therapy, dtrs arrived this am and pt taken for stair practice, some confusion re dc home today vs tomorrow, later am Sherrell BERNAL in and pt will dc home this afternoon, scripts given to dtr to fill, saline lock dc'd.
== END 2018-02-20 12:40 | disposition home or self-care (01) | DRG 455 ==
PROVIDERS: Admitting Provider Orthopaedic Surgery Orthopaedic Surgery of the Spine; Visit Provider Orthopaedic Surgery Orthopaedic Surgery of the Spine
PROC: 0SG1071 Fusion of 2 or more Lumbar Vertebral Joints with Autologous Tissue Substitute, Posterior Approach, Posterior Column, Open Approach (ICD-10-PCS; principal; 2018-02-18 07:45)
DX: M48.062 Spinal stenosis, lumbar region with neurogenic claudication (principal); M43.16 Spondylolisthesis, lumbar region; M47.26 Other spondylosis with radiculopathy, lumbar region; M48.07 Spinal stenosis, lumbosacral region; Z96.651 Presence of right artificial knee joint; M06.9 Rheumatoid arthritis, unspecified; I10 Essential (primary) hypertension; M43.17 Spondylolisthesis, lumbosacral region; M47.27 Other spondylosis with radiculopathy, lumbosacral region
CPT/HCPCS: 36415; 72100; 76001; 85014; 85018; 94760; 97116; 97162; 97165; 97530; C1776; C9290; J0330; J0690; J1100; J2250; J2405; J2704; J3010

== ENCOUNTER → 2018-10-13 12:32 | Outpatient (CLI) | payer MEDICARE, OTHER, SELFPAY ==
[2018-02-18 15:50] VITALS: BMI 23.8
--- NOTE | 2018-10-13 | DI.RAD.S_ITS ---
PROCEDURE: XR CHEST 2V INDICATIONS: Rheumatoid arthritis, unspecified TECHNIQUE: 2 views of the chest were acquired. COMPARISON: None. FINDINGS: Surgical changes and devices: None. Lungs and pleura: Lungs are clear. No pleural effusions or pneumothorax. Mediastinum: Mediastinal contours are normal. Heart size is normal. Bones and chest wall: No suspicious bony abnormalities. Soft tissues appear unremarkable. IMPRESSION: No evidence acute pulmonary process. Dictated by: Aj Espinoza M.D. on 10/13/2018 at 17:29 Approved by: Aj Espinoza M.D. on 10/13/2018 at 17:29
[2018-10-13 13:39] LABS: Blood Urea Nitrogen 13 mg/dL (7-17); Carbon Dioxide 25 mmol/L (22-32); Chloride 106 mmol/L (98-107); Cholesterol 171 mg/dL (140-199); Estimated Glomerular Filt Rate > 60.0 mL/min (>60); Glucose 99 mg/dL (80-110); HDL Cholesterol 49 mg/dL (40-60); HEMOLYSIS < 15 (0-50); LDL Cholesterol Calculated 97 mg/dL (<100); Potassium 3.7 mmol/L (3.4-5.1); Sodium 139 mmol/L (137-145); Triglycerides 125 mg/dL (35-150)
[2018-10-13 13:43] LABS: Add Manual Diff / Slide Review NO; Basophils Absolute Auto 100 /uL (0-100); Basophils Percent Auto 1.2 % (0-2); Eosinophils Absolute Auto 300 /uL (0-450); Eosinophils Percent Auto 4.1 % (2-4); Hematocrit 40.9 % (36-46); Hemoglobin 12.9 g/dL (12.0-16.0); Lymphocytes Absolute Auto 700 /uL (1100-4500); Lymphocytes Percent Auto 10.2 % (25-40); Mean Corpuscular HGB Conc 31.5 % (30-36); Mean Corpuscular Hemoglobin 26.8 PG (26-34); Mean Corpuscular Volume 85.1 fL (80-100); Monocytes Absolute Auto 600 /uL (0-900); Monocytes Percent Auto 9.7 % (3-14); Neutrophils Absolute Auto 4900 /uL (1500-7000); Neutrophils Percent Auto 74.8 % (50-75); Platelet Count 218 X10^3/uL (150-400); Red Cell Distribution Width 15.4 % (11.6-14.8); White Blood Cell Count 6.6 X10^3/uL (4.5-11.0)
== END ==
PROVIDERS: Visit Provider Internal Medicine Cardiovascular Disease
DX: I10 Essential (primary) hypertension (principal); M06.9 Rheumatoid arthritis, unspecified; R09.89 Other specified symptoms and signs involving the circulatory and respiratory systems
CPT/HCPCS: 36415; 71046; 80048; 80061; 85025

== ENCOUNTER → 2018-11-24 08:23 | Outpatient (CLI) | payer MEDICARE, OTHER, SELFPAY ==
[2018-02-18 15:50] VITALS: BMI 23.8
--- NOTE | 2018-11-24 | DI.ECHO.S_ITS ---
[facility] +---------+ : : [address] [place] : : : : [id number] : : : : Phone: [phone]+ Echocardiogram Report + + :Name: TERESA NARAYAN Study Date: 11/24/2018 Height: 64 in : :[facility] Exam Location: [place] Weight: 152 lb : : Gender: Female BSA: 1.7 m2 : :: 1940 Age: 78 yrs BP: 146/65 mmHg: :Reason For Study: MURMUR : :Ordering Physician: Ema Ibrahim : :Cristin Performed By: Eder Moe : :Referring: EMA AMARAL : + + Interpretation Summary 1) Normal left ventricular thickness, size, wall motion, and systolic function (EF 60-65%). 2) Normal right ventricular size and function. 3) There is mild aortic regurgitation. 4) No prior Echo available for comparison. Procedure: A two-dimensional transthoracic echocardiogram with color flow and Doppler was performed. The study quality was technically adequate. There is no prior echocardiogram noted for this patient. The patient was in normal sinus rhythm during the exam. Left Ventricle: The left ventricle is normal in size. Left ventricular wall thickness is borderline increased. The ejection fraction is estimated to be 60-65%. There are no focal wall motion abnormalities. Right Ventricle: The right ventricle is normal in size and function. Atria: The left atrium is moderately dilated. Right atrial size is normal. The interatrial septum is intact with no evidence for an atrial septal defect. Mitral Valve: The mitral valve is normal in structure and function. There is mild mitral regurgitation. Aortic Valve: The aortic valve is trileaflet. The aortic valve opens well. There is no aortic valve stenosis. There is mild aortic regurgitation. Tricuspid Valve: The tricuspid valve is normal in structure and function. There is trace tricuspid regurgitation. Pulmonary artery pressures cannot be estimated because of the lack of a measurable TR jet velocity. Pulmonic Valve: The pulmonic valve is not well visualized. There is trace pulmonic regurgitation. Great Vessels: The aortic root is normal size. The dimensions of the ascending aorta are normal. The pulmonary artery is normal size. The IVC is of normal diameter and collapses greater than 50% with a sniff. This suggests a low right atrial pressure of 3 mm Hg. Pericardium/ Pleura There is no pericardial effusion. There is no pleural effusion. MMode/2D Measurements & Calculations LVIDd: 5.0 cm LVOT diam: 2.0 cm LVIDs: 2.6 cm Ao root diam: 2.9 cm FS: 48.0 % asc Aorta Diam: 3.3 cm EPSS: 0.62 cm Ao Arch Diam (Prox Trans): 2.7 cm IVSd: 1.2 cm LVPWd: 1.0 cm LV sauer. diameter/BSA (cm/m^2): 2.9 LV sys. diameter/BSA (cm/m^2): 1.5 LA dimension: 3.6 cm RA long axis: 4.9 cm LA A2 area: 24.1 cm2 RA area: 13.4 cm2 LA A4 area: 21.1 cm2 RA vol: 31.3 ml LA length (vol): 5.8 cm RA : 18.0 ml/m2 LA vol: 74.3 ml IVC diam: 1.3 cm LA vol index: 42.7 ml/m2 Doppler Measurements & Calculations Ao V2 max: 142.5 cm/sec LVOT Max Morgan: 105.2 cm/sec Ao V2 mean: 103.9 cm/sec LV V1 max P.4 mmHg Ao max P.1 mmHg LV V1 VTI: 25.6 cm Ao mean P.8 mmHg PABLO(I,D): 2.5 cm2 Ao V2 VTI: 31.7 cm PABLO(V,D): 2.3 cm2 sev ratio: 0.81 PABLO indexed to BSA (cm^2/m^2): 1.4 AI P1/2t: 654.4 msec AI dec slope: 182.7 cm/sec2 MV E max morgan: 67.0 cm/sec PA V2 max: 108.1 cm/sec MV A max morgan: 97.8 cm/sec PA V2 mean: 80.2 cm/sec MV E/A: 0.69 PA mean P.8 mmHg Med Peak E' Morgan: 3.4 cm/sec PA pr(Accel): 34.1 mmHg E/E' med: 19.7 PA Accel Time: 0.10 sec Lat Peak E' Morgan: 6.7 cm/sec E/E' lat: 10.0 E/e' average: 14.8 MV dec time: 0.21 sec SV(LVOT): 79.2 ml Reading Physician:03:16 PM
--- NOTE | 2018-11-24 | DI.CT.S_ITS ---
PROCEDURE: CT CHEST HIGH RESOLUTION INDICATIONS: CHEST CRACKLES HEART MURMUR TECHNIQUE: Noncontrast 1.0 and 5.0 mm thick contiguous axial sections from the pulmonary apex to the posterior costophrenic angles, with 7 mm thick coronal and sagittal MIP reformats. 1 mm thick dynamic expiratory images acquired through the upper, mid, and lower lungs. 1.0 mm thick axial sections acquired from the tay to the posterior costophrenic angles in the prone end-inspiration position. For radiation dose reduction, the following was used: automated exposure control, adjustment of mA and/or kV according to patient size. COMPARISON: [facility], CR, XR CHEST 2V, 10/13/2018, 12:43. FINDINGS: Image quality: Excellent. Lungs: Scattered bibasilar subpleural scarring and reticulation. Possible early honeycombing appearance seen within the right lung base on image 199 series 3 and in the left posterior sulcus, image 228 series 3 however no comparison studies available. There is bilateral lower lobe and right upper lobe bronchiectasis. No acute consolidation. No definite tree-in-bud opacities. No definite mosaic lung attenuation. Pleura: No pleural effusions or pneumothorax. Mediastinum: Heart size is normal. Coronary artery calcifications are present. No pericardial effusion. Thoracic aorta and central pulmonary arteries are normal in size. Scattered nonspecific calcified shotty right hilar lymph nodes without pathologic enlargement Esophagus is normal in caliber. Bones and chest wall: No suspicious bony lesions. No vertebral body compression fractures. Abdomen: Visualized upper abdominal solid organs and bowel loops appear normal. IMPRESSION: Widespread bilateral interstitial disease and scarring, with predominantly lower lobe involvement. Possible early honeycombing appearance in the left posterior sulcus and right lung base raise the possibility of developing usual interstitial pneumonia/IPF, rheumatoid associated-ILD. (versus early fibrotic nonspecific interstitial pneumonia.) Recommend continued surveillance with chest CT Bilateral lower lobe and right upper lobe bronchiectasis. Coronary artery disease. Dictated by: David Gonsalez M.D. on 11/24/2018 at 11:03 Approved by: David Gonsalez M.D. on 11/24/2018 at 11:23
== END ==
PROVIDERS: Visit Provider Internal Medicine Cardiovascular Disease
DX: I08.0 Rheumatic disorders of both mitral and aortic valves (principal); R01.1 Cardiac murmur, unspecified; J84.9 Interstitial pulmonary disease, unspecified; J47.9 Bronchiectasis, uncomplicated; R09.89 Other specified symptoms and signs involving the circulatory and respiratory systems; M06.9 Rheumatoid arthritis, unspecified; I25.10 Atherosclerotic heart disease of native coronary artery without angina pectoris
CPT/HCPCS: 71250; 93306